=== PATIENT | female | born 1950 | race Caucasian/White ===

== ENCOUNTER → 2021-03-10 11:29 | Outpatient (CLI) | payer OTHER, SELFPAY ==
--- NOTE | 2021-03-10 11:30 | DI.MG.S_ITS ---
BILATERAL DIGITAL SCREENING MAMMOGRAM 3D/2D WITH CAD: 03/10/2021 CLINICAL: Routine screening. Comparison is made to exams dated: 01/08/2018 mammogram, 01/19/2015 mammogram, 08/15/2012 mammogram, 06/13/2011 mammogram, and 06/08/2010 mammogram - [facility]. There are scattered fibroglandular elements in both breasts. Current study was also evaluated with a Computer Aided Detection (CAD) system. No significant masses, calcifications, or other findings are seen in either breast. There has been no significant interval change. IMPRESSION: NEGATIVE There is no mammographic evidence of malignancy. A 1 year screening mammogram is recommended. This exam was interpreted at Station ID: [id number]. NOTE: For mammograms, a report in lay terms will be sent to the patient. Approximately 15% of breast malignancies will not be visualized mammographically. In the management of a palpable breast mass, a negative mammogram must not discourage biopsy of a clinically suspicious lesion. Electronically Signed By: Andrea [email or web address]:03/10/2021 14:19:06 letter sent: Normal Exam ACR BI-RADS Category 1: Negative [id number]
== END ==
PROVIDERS: Family Provider Family Medicine; PCP Family Medicine; Referring Provider Family Medicine; Visit Provider Family Medicine
DX: Z12.31 Encounter for screening mammogram for malignant neoplasm of breast (principal)
CPT/HCPCS: 77063; 77067

== ENCOUNTER → 2021-03-11 09:43 | Outpatient (CLI) | payer OTHER, SELFPAY ==
[2021-03-11 10:11] LABS: Add Manual Diff / Slide Review NO; Basophils Absolute Auto 100 /uL (0-100); Basophils Percent Auto 1.3 % (0-2); Eosinophils Absolute Auto 300 /uL (0-450); Eosinophils Percent Auto 6.2 % (2-4); Hematocrit 42.6 % (36-46); Hemoglobin 14.1 g/dL (12.0-16.0); Lymphocytes Absolute Auto 1800 /uL (1100-4500); Lymphocytes Percent Auto 38.6 % (25-40); Mean Corpuscular HGB Conc 33.2 % (30-36); Mean Corpuscular Hemoglobin 30.2 PG (26-34); Monocytes Absolute Auto 400 /uL (0-900); Monocytes Percent Auto 8.7 % (3-14); Neutrophils Absolute Auto 2100 /uL (1500-7000); Neutrophils Percent Auto 45.2 % (50-75); Platelet Count 204 X10^3/uL (150-400); Red Blood Cell Count 4.68 X10^6/uL (4.0-5.2); Red Cell Distribution Width 13.9 % (11.6-14.8); White Blood Cell Count 4.7 X10^3/uL (4.5-11.0)
[2021-03-11 10:29] LABS: Alanine Aminotransferase 23 IU/L (<35); Albumin 4.6 g/dL (3.5-5.0); Albumin Globulin Ratio 1.6 (1.0-2.8); Alkaline Phosphatase 96 U/L (38-126); Aspartate Aminotransferase 36 IU/L (14-36); BUN Creatinine Ratio 25.6 (6-22); Bilirubin Total 0.8 mg/dL (0.2-1.3); Blood Urea Nitrogen 20 mg/dL (7-17); Calcium 9.8 mg/dL (8.4-10.2); Carbon Dioxide 25 mmol/L (22-32); Chloride 109 mmol/L (98-107); Cholesterol 252 mg/dL (140-199); Estimated Glomerular Filt Rate > 60.0 mL/min (>60); Globulin 2.9 g/dL (1.7-4.1); Glucose 98 mg/dL (80-110); HDL Cholesterol 82 mg/dL (40-60); HEMOLYSIS < 15 (0-50); LDL Cholesterol Calculated 151 mg/dL (<100); Potassium 4.9 mmol/L (3.4-5.1); Sodium 141 mmol/L (137-145); Total Protein 7.5 g/dL (6.3-8.2); Triglycerides 95 mg/dL (35-150)
[2021-03-11 10:46] LABS: Vitamin D 25 Hydroxy (D3) 49.4 ng/mL (30.0-100.0)
[2021-03-11 11:43] LABS: Thyroid Stimulating Hormone 3.61 uIU/mL (0.47-4.68)
== END ==
PROVIDERS: Family Provider Family Medicine; PCP Family Medicine; Referring Provider Family Medicine; Visit Provider Family Medicine
DX: E78.2 Mixed hyperlipidemia (principal); E55.9 Vitamin D deficiency, unspecified
CPT/HCPCS: 36415; 80053; 80061; 82306; 84443; 85025

== ENCOUNTER 2022-11-05 10:07 | Emergency (ER) | payer OTHER, SELFPAY ==
[2022-11-05] VITALS (12 sets, daily range): BP systolic 123–157; BP diastolic 57–75; PULSE 61–88; RESP 16–39; TEMP 37.4; O2SAT 94–98; BMI 24.2
--- NOTE | 2022-11-05 10:27 | DI.CT.S_ITS ---
PROCEDURE: CT HEAD/BRAIN WO CON INDICATIONS: dizzy slurred speech resolved TECHNIQUE: Noncontrast 4.5 mm thick angled axial sections acquired from the foramen magnum to the vertex, with coronal and sagittal reformats. For radiation dose reduction, the following was used: automated exposure control, adjustment of mA and/or kV according to patient size. COMPARISON: None. FINDINGS: Image quality: Excellent. CSF spaces: Basal cisterns are patent. No extra-axial fluid collections. Ventricles are normal in size and shape. Brain: No midline shift. No intracranial masses or hemorrhage. Martinez-white matter interface is normal. Enlarged perivascular space noted adjacent to the left anterior commissure Skull and face: Calvarium and visualized facial bones are intact, without suspicious lesions. Incidental hyperostosis frontalis interna noted. Sinuses: Visualized sinuses and mastoids are clear. IMPRESSION: No acute intracranial findings Approved by: Rayo Galicia M.D. on 11/05/2022 at 10:15
--- NOTE | 2022-11-05 10:27 | DI.CT.S_ITS ---
PROCEDURE: CT ANGIO HEAD AND NECK INDICATIONS: dizzy slurred speech resolved TECHNIQUE: After the administration of intravenous contrast, 1 mm thick sections acquired from the aortic arch through the [place]. Post-contrast 4.5 mm thick sections then re-acquired from the foramen magnum to the vertex. For radiation dose reduction, the following was used: automated exposure control, adjustment of mA and/or kV according to patient size. COMPARISON: None. FINDINGS: Image quality: Excellent. HEAD CT ANGIOGRAPHY: Anterior circulation: Intracranial internal carotid arteries are normal in size and flow. The flow within the paired anterior cerebral arteries is normal and symmetric. The flow within the middle cerebral arteries is normal and symmetric. The anterior communicating artery is seen. No aneurysms are seen. Posterior circulation: Visualized portions of the vertebral arteries demonstrate normal caliber, and join to form a normal appearing basilar artery. 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 The P2 segment is supplied by a widely patent posterior communicating artery. Remainder of the distal vasculature unremarkable. No aneurysms are seen. NECK CT ANGIOGRAPHY: Carotid system: The great vessels demonstrate a conventional anatomy as they arise from the aortic arch. The origins of the common carotid arteries appear patent. The common carotid arteries demonstrate normal caliber and courses. The bifurcation regions are both widely patent. The internal carotid arteries demonstrate normal calibers and courses. Posterior circulation: The origins of the vertebral arteries both appear widely patent. The more superior extracranial portions of both vertebral arteries also demonstrate normal courses and calibers. They join to form a normal appearing basilar artery. Soft tissues: Visualized neck soft tissues demonstrate no suspicious abnormalities. Bones: No suspicious bony lesions. Visualized cervical spine appears normally aligned. Degenerative disc disease and arthropathy noted in the cervical IMPRESSION: Unremarkable CT angiogram of head and neck. No large vessel occlusion, aneurysm vascular malformation Any quantitative measurements of stenosis were performed using NASCET criteria. Approved by: Rayo Galicia M.D. on 11/05/2022 at 10:23
--- NOTE | 2022-11-05 10:28 | DI.RAD.S_ITS ---
PROCEDURE: XR CHEST 1V INDICATIONS: dizzy TECHNIQUE: One view of the chest was acquired. COMPARISON: [facility], , CHEST 2 VIEW, 02/26/2011, 10:33. FINDINGS: Surgical changes and devices: None. Lungs and pleura: Ill-defined increased opacity in right infrahilar region is seen. Left lung is clear. No pleural effusions or pneumothorax. Mediastinum: Mediastinal contours appear normal. Heart size is enlarged. Bones and chest wall: No suspicious bony lesions. Overlying soft tissues appear unremarkable. IMPRESSION: Finding is concerning for developing right infrahilar infiltrate. No pleural effusion or pneumothorax. Dictated by: Gold Padgett M.D. on 11/05/2022 at 11:24 Approved by: Gold Padgett M.D. on 11/05/2022 at 11:27
--- NOTE | 2022-11-05 10:35 | PC.NURSE ---
patient has not felt well for last couple days. Reports headache, fever, dry cough. Took ibuprofen this morning. Has dizziness at baseline intermittently. Patient states that she was excerting herself getting wood. found patient on the ground, generalized very weak unable to assist with getting up and noticed some slurred speech. Patient presents with normal speech at present and no focal neuro deficits
[2022-11-05 10:43] LABS: Add Manual Diff / Slide Review NO; Basophils Absolute Auto 0 /uL (0-100); Eosinophils Absolute Auto 0 /uL (0-450); Eosinophils Percent Auto 0.9 % (2-4); Hematocrit 37.4 % (36-46); Hemoglobin 12.6 g/dL (12.0-16.0); Lymphocytes Absolute Auto 800 /uL (1100-4500); Mean Corpuscular HGB Conc 33.8 % (30-36); Mean Corpuscular Hemoglobin 30.2 PG (26-34); Mean Corpuscular Volume 89.3 fL (80-100); Monocytes Absolute Auto 700 /uL (0-900); Monocytes Percent Auto 15.5 % (3-14); Neutrophils Absolute Auto 2700 /uL (1500-7000); Neutrophils Percent Auto 63.6 % (50-75); Platelet Count 161 X10^3/uL (150-400); Red Blood Cell Count 4.19 X10^6/uL (4.0-5.2); Red Cell Distribution Width 13.5 % (11.6-14.8); White Blood Cell Count 4.2 X10^3/uL (4.5-11.0)
[2022-11-05 10:48] LABS: Lactate (Lactic Acid) 0.8 mmol/L (0.7-2.1)
[2022-11-05 10:49] LABS: Alanine Aminotransferase 22 IU/L (<35); Albumin Globulin Ratio 1.3 (1.0-2.8); Alkaline Phosphatase 79 U/L (38-126); Aspartate Aminotransferase 31 IU/L (14-36); BUN Creatinine Ratio 19.4 (6-22); Bilirubin Total 0.4 mg/dL (0.2-1.3); Blood Urea Nitrogen 14 mg/dL (7-17); Calcium 8.3 mg/dL (8.4-10.2); Carbon Dioxide 24 mmol/L (22-32); Chloride 103 mmol/L (98-107); Creatine Kinase 101 U/L (30-135); Estimated Glomerular Filt Rate > 60 mL/min (>60); Globulin 3.2 g/dL (1.7-4.1); Glucose 93 mg/dL (80-110); HEMOLYSIS < 15 (0-50); Lipase 62 U/L (23-300); Potassium 3.5 mmol/L (3.4-5.1); Sodium 135 mmol/L (137-145); Total Protein 7.2 g/dL (6.3-8.2)
[2022-11-05 11:00] LABS: Troponin I < 0.012 ng/mL (0.01-0.034)
[2022-11-05] MEDS: SODIUM CHLORIDE 0.9% 1,000 ML 150 ML IV (11:03)
[2022-11-05 11:04] LABS: CKMB % Relative Index 0.6 % (1.5-5.0); Creatine Kinase MB 0.57 ng/mL (<2.37)
[2022-11-05 11:06] LABS: Procalcitonin 0.04 ng/mL (<0.5)
--- NOTE | 2022-11-05 11:21 | ED_ITS ---
HPI - Dizziness General Chief Complaint: Syncope Stated Complaint: collasped slurred speech forgeting words Time Seen by Provider: 11/05/22 10:23 Mode of arrival: Family Vehicle History of Present Illness HPI Narrative: Patient is a 72-year-old female history of hyperlipidemia hypothyroid presenting today with ground level fall weakness and slurring of speech. She apparently went outside to get a couple pieces of wood she would already gotten 3 pieces of wood she went to go get another 1 when she got dizzy and fell down. She was not down for very long her came to check on her and saw her just before 9:00 a.m. he said she was profoundly weak on both sides and had slurring of. Her symptoms lasted for less than 1 hour and have now completely resolved. She had fever yesterday but is not febrile today. She no longer has any weakness. She does have a history of vertigo but this felt significantly worse and different than previously. She denies any chest pain palpitations cough. Related Data Home Medications Medication Instructions Recorded Confirmed [Digestive Enzyme] #90 caps 02/26/18 03/08/22 [Thyroid Support Caps] #30 tabs 02/26/18 03/08/22 cholecalciferol (vitamin D3) 125 5,000 unit PO ##0 02/26/18 03/08/22 mcg (5,000 unit) capsule omega 2-rfe-jhz-fish oil 1,000 mg 1,000 mg PO ##0 02/26/18 03/08/22 (120 mg-180 mg) capsule (Fish Oil) vitamin B complex (B 1 tab PO QDAY ##0 02/26/18 03/08/22 Complex-Vitamin B12 tablet) Previous Rx's Medication Instructions Recorded atorvastatin 20 mg tablet (Lipitor) 20 mg PO BEDTIME #90 tabs 03/16/21 Allergies Allergy/AdvReac Type Severity Reaction Status Date / Time venom-honey bee Allergy Severe Fever Verified 11/05/22 10:31 [BEE VENOM (HONEY BEE)] Review of Systems Review of Systems Narrative: GENERAL: Denies chills,fever HEENT: Denies throat pain RESPIRATORY: Denies dyspnea, cough, wheezing CARDIOVASCULAR: Denies chest pain, palpitations GASTROINTESTINAL: Denies nausea, vomiting MUSCULOSKELETAL: Denies extremity pain, injury SKIN: No rash, no laceration, no pruritus NEUROLOGIC: See HPI 8 point review of systems is negative except for those stated above and HPI Patient History Medical History Abnormal liver function tests Colon cancer screening Impacted cerumen of both ears Neoplasm of uncertain behavior of skin Vitamin D deficiency Surgical History History of carpal tunnel repair History of tonsillectomy Status post colonoscopy Family History Brother Diabetes mellitus Heart disease Father Heart disease Hypertension High cholesterol Social History Smoking Status: Former smoker alcohol intake: current substance use type: does not use Smoking Status: Former smoker Exam Initial Vital Signs Initial Vital Signs: Vital Signs Temperature 99.3 F 11/05/22 10:07 Pulse Rate 69 11/05/22 10:07 Respiratory Rate 16 11/05/22 10:07 Blood Pressure 157/75 H 11/05/22 10:07 Pulse Oximetry 96 11/05/22 10:07 Oxygen Delivery Method 11/05/22 10:07 GENERAL: Alert pleasant 72-year-old female and in no acute distress. HEENT: Head atraumatic,EOMI, pupils reactive, face symmetric, moist mucous membranes CARDIOVASCULAR: Regular rate and rhythm without murmurs, rubs or gallops. RESPIRATORY: Breath sounds equal bilaterally, no wheezes rales or rhonchi. ABDOMEN: Soft, nontender. Normoactive bowel sounds all 4 quadrants. No guarding or rebound. EXTREMITIES: Normal range of motion, no clubbing or edema. Neurovascularly intact NEUROLOGICAL: Alert and oriented x4.Normal gait and speech. Cranial nerves II through XII grossly intact. Good jiwgcq-dw-bwqs, good qtva-gm-gtmn, strength equal bilaterally, no dysarthria or aphasia, sensation in tact to soft touch bilaterally, no visual changes, no facial droop SKIN: Warm, dry, no laceration, no petechiae, no rashes or lesions. Scores NIH Stroke Scale Level of Conciousness: Alert, keenly responsive Ask month/age: Answers both questions correctly. Open/close eyes, close hand: Performs both tasks correctly Best gaze horizontal: Normal Visual herring: No visual loss Facial palsy: Normal symetrical movement Left arm drift: No drift for full 10 sec Right arm drift: No drift for full 10 sec Left leg drift: No drift for full 5 sec Right leg drift: No drift for full 5 sec Limb ataxia: Absent Sensory on face/arms/legs: Normal, no sensory loss Best language: No aphasia, normal Dysarthria: Normal Extinction or inattention: No abnormality Total NIH Stroke scale score: 0 Course Orders Ordered: Discontinued Medications Sodium Chloride (Normal Saline 0.9%) 1,000 mls @ 150 mls/hr IV CONT RAFAELA Last Admin: 11/05/22 11:03 Dose: 150 mls/hr Documented By: [facility] Vital Signs Vital signs: Vital Signs - 8 hr 11/05/22 10:07 11/05/22 10:13 11/05/22 10:16 Temperature 99.3 F Pulse Rate 69 88 74 Respiratory Rate 16 28 H Blood Pressure 157/75 H Pulse Oximetry 96 98 Oxygen Delivery Method Room Air 11/05/22 10:16 11/05/22 10:30 11/05/22 10:31 Temperature Pulse Rate 68 Respiratory Rate 34 H Blood Pressure 157/75 H 130/61 Pulse Oximetry 97 Oxygen Delivery Method 11/05/22 10:31 11/05/22 10:55 11/05/22 10:55 Temperature Pulse Rate 67 79 Respiratory Rate 36 H 39 H Blood Pressure 124/57 L Pulse Oximetry 97 Oxygen Delivery Method 11/05/22 11:00 11/05/22 11:00 11/05/22 11:24 Temperature Pulse Rate 61 69 Respiratory Rate 27 H Blood Pressure 138/62 Pulse Oximetry 97 97 Oxygen Delivery Method 11/05/22 11:24 11/05/22 11:30 11/05/22 11:30 Temperature Pulse Rate 61 Respiratory Rate 19 Blood Pressure 123/59 L 140/67 Pulse Oximetry 97 Oxygen Delivery Method 11/05/22 11:59 11/05/22 11:59 11/05/22 12:00 Temperature Pulse Rate 80 74 Respiratory Rate 18 Blood Pressure 138/63 Pulse Oximetry 94 97 Oxygen Delivery Method MDM - Dizziness Lab Data Result diagrams: 11/05/22 10:28 11/05/22 10:25 Labs: Lab Results 11/05/22 11/05/22 11/05/22 Range/Units 10:25 10:25 10:25 WBC (4.5-11.0) X10^3/uL RBC (4.0-5.2) X10^6/uL Hgb (12.0-16.0) g/dL Hct (36-46) % MCV (80-100) fL MCH (26-34) PG MCHC (30-36) % RDW (11.6-14.8) % Plt Count (150-400) X10^3/uL Neut % (Auto) (50-75) % Lymph % (Auto) (25-40) % [place] % (Auto) (3-14) % Eos % (Auto) (2-4) % Baso % (Auto) (0-2) % Neut # (Auto) (5587-8578) /uL Lymph # (Auto) (8692-2856) /uL [place] # (Auto) (0-900) /uL Eos # (Auto) (0-450) /uL Baso # (Auto) (0-100) /uL PT (10.1-12.7) SECONDS INR (0.9-1.3) APTT (26-36) SECONDS Sodium 135 L (137-145) mmol/L Potassium 3.5 (3.4-5.1) mmol/L Chloride 103 (98-107) mmol/L Carbon Dioxide 24 (22-32) mmol/L BUN 14 (7-17) mg/dL Creatinine 0.72 (0.52-1.04) mg/dL Estimated GFR > 60 (>60) mL/min BUN/Creatinine Ratio 19.4 (6-22) Glucose 93 (80-110) mg/dL Lactate 0.8 (0.7-2.1) mmol/L Calcium 8.3 L (8.4-10.2) mg/dL Total Bilirubin 0.4 (0.2-1.3) mg/dL AST 31 (14-36) IU/L ALT 22 (<35) IU/L Alkaline Phosphatase 79 (38-126) U/L Total Creatine Kinase 101 (30-135) U/L CK-MB (CK-2) 0.57 (<2.37) ng/mL CK-MB (CK-2) Rel Index 0.6 L (1.5-5.0) % Troponin I < 0.012 (0.01-0.034) ng/mL Total Protein 7.2 (6.3-8.2) g/dL Albumin 4.0 (3.5-5.0) g/dL Globulin 3.2 (1.7-4.1) g/dL Albumin/Globulin Ratio 1.3 (1.0-2.8) Lipase 62 (23-300) U/L Procalcitonin 0.04 (<0.5) ng/mL Urine RBC (0-5/HPF) Urine WBC (0-5/HPF) Urine Bacteria (None) Ur Culture Indicated? SARS-CoV-2 (PCR) (Negative) Influenza A (RT-PCR) (NEGATIVE) Influenza B (RT-PCR) (NEGATIVE) RSV (PCR) (Negative) 11/05/22 11/05/22 11/05/22 Range/Units 10:27 10:28 10:45 WBC 4.2 L (4.5-11.0) X10^3/uL RBC 4.19 (4.0-5.2) X10^6/uL Hgb 12.6 (12.0-16.0) g/dL Hct 37.4 (36-46) % MCV 89.3 (80-100) fL MCH 30.2 (26-34) PG MCHC 33.8 (30-36) % RDW 13.5 (11.6-14.8) % Plt Count 161 (150-400) X10^3/uL Neut % (Auto) 63.6 (50-75) % Lymph % (Auto) 19.0 L (25-40) % [place] % (Auto) 15.5 H (3-14) % Eos % (Auto) 0.9 L (2-4) % Baso % (Auto) 1.0 (0-2) % Neut # (Auto) 2700 (1531-1550) /uL Lymph # (Auto) 800 L (0719-8715) /uL [place] # (Auto) 700 (0-900) /uL Eos # (Auto) 0 (0-450) /uL Baso # (Auto) 0 (0-100) /uL PT 12.6 (10.1-12.7) SECONDS INR 1.1 (0.9-1.3) APTT 31 (26-36) SECONDS Sodium (137-145) mmol/L Potassium (3.4-5.1) mmol/L Chloride (98-107) mmol/L Carbon Dioxide (22-32) mmol/L BUN (7-17) mg/dL Creatinine (0.52-1.04) mg/dL Estimated GFR (>60) mL/min BUN/Creatinine Ratio (6-22) Glucose (80-110) mg/dL Lactate (0.7-2.1) mmol/L Calcium (8.4-10.2) mg/dL Total Bilirubin (0.2-1.3) mg/dL AST (14-36) IU/L ALT (<35) IU/L Alkaline Phosphatase (38-126) U/L Total Creatine Kinase (30-135) U/L CK-MB (CK-2) (<2.37) ng/mL CK-MB (CK-2) Rel Index (1.5-5.0) % Troponin I (0.01-0.034) ng/mL Total Protein (6.3-8.2) g/dL Albumin (3.5-5.0) g/dL Globulin (1.7-4.1) g/dL Albumin/Globulin Ratio (1.0-2.8) Lipase (23-300) U/L Procalcitonin (<0.5) ng/mL Urine RBC (0-5/HPF) Urine WBC (0-5/HPF) Urine Bacteria (None) Ur Culture Indicated? SARS-CoV-2 (PCR) Negative (Negative) Influenza A (RT-PCR) Flu a positive H (NEGATIVE) Influenza B (RT-PCR) Flu b negative (NEGATIVE) RSV (PCR) Negative (Negative) 11/05/22 Range/Units 11:25 WBC (4.5-11.0) X10^3/uL RBC (4.0-5.2) X10^6/uL Hgb (12.0-16.0) g/dL Hct (36-46) % MCV (80-100) fL MCH (26-34) PG MCHC (30-36) % RDW (11.6-14.8) % Plt Count (150-400) X10^3/uL Neut % (Auto) (50-75) % Lymph % (Auto) (25-40) % [place] % (Auto) (3-14) % Eos % (Auto) (2-4) % Baso % (Auto) (0-2) % Neut # (Auto) (9450-0457) /uL Lymph # (Auto) (1100-2146) /uL [place] # (Auto) (0-900) /uL Eos # (Auto) (0-450) /uL Baso # (Auto) (0-100) /uL PT (10.1-12.7) SECONDS INR (0.9-1.3) APTT (26-36) SECONDS Sodium (137-145) mmol/L Potassium (3.4-5.1) mmol/L Chloride (98-107) mmol/L Carbon Dioxide (22-32) mmol/L BUN (7-17) mg/dL Creatinine (0.52-1.04) mg/dL Estimated GFR (>60) mL/min BUN/Creatinine Ratio (6-22) Glucose (80-110) mg/dL Lactate (0.7-2.1) mmol/L Calcium (8.4-10.2) mg/dL Total Bilirubin (0.2-1.3) mg/dL AST (14-36) IU/L ALT (<35) IU/L Alkaline Phosphatase (38-126) U/L Total Creatine Kinase (30-135) U/L CK-MB (CK-2) (<2.37) ng/mL CK-MB (CK-2) Rel Index (1.5-5.0) % Troponin I (0.01-0.034) ng/mL Total Protein (6.3-8.2) g/dL Albumin (3.5-5.0) g/dL Globulin (1.7-4.1) g/dL Albumin/Globulin Ratio (1.0-2.8) Lipase (23-300) U/L Procalcitonin (<0.5) ng/mL Urine RBC 5-10/hpf H (0-5/HPF) Urine WBC 0-1/hpf (0-5/HPF) Urine Bacteria Occasional (0-1) (None) Ur Culture Indicated? Specimen cultured SARS-CoV-2 (PCR) (Negative) Influenza A (RT-PCR) (NEGATIVE) Influenza B (RT-PCR) (NEGATIVE) RSV (PCR) (Negative) Urine Dip Bedside Urine Glucose Negative Bedside Urine Bilirubin - Negative Bedside Urine Ketone - Negative Urine Specific [place] 1.010 Bedside Urine Occult Blood ++ Bedside Urine pH 6.0 Bedside Urine Protein - Negative Bedside Urine Urobilinogen - Negative Bedside Urine Nitrite - Negative Bedside Urine Leukocytes +/- [address] scan - head: Radiologist's Impression: CT Scan Report Signed Patient: Ave Humphrey MR#: [id number] : 1950 Acct:[id number] Age/Sex: 72 / F Date of Service: 11/05/22 Loc: ED Accession Number: [id number] ?? Procedure: CT head/brain wo con Ordering Provider: Barbara Chaparro D.O. PROCEDURE:? CT HEAD/BRAIN WO CON ? INDICATIONS:? dizzy slurred speech resolved ? TECHNIQUE:? Noncontrast 4.5 mm thick angled axial sections acquired from the foramen magnum to the vertex, with coronal and sagittal reformats.? For radiation dose reduction, the following was used:? automated exposure control, adjustment of mA and/or kV according to patient size.? ? COMPARISON:? None. ? FINDINGS:? Image quality:? Excellent.? ? CSF spaces:? Basal cisterns are patent.? No extra-axial fluid collections.? Ventricles are normal in size and shape.? ? Brain:? No midline shift.? No intracranial masses or hemorrhage.? Martinez-white matter interface is normal.? Enlarged perivascular space noted adjacent to the left anterior commissure ? Skull and face:? Calvarium and visualized facial bones are intact, without suspicious lesions.? Incidental hyperostosis frontalis interna noted. ? Sinuses:? Visualized sinuses and mastoids are clear.? ? IMPRESSION:? No acute intracranial findings ? ? ? Approved by: Rayo Galicia M.D. on 11/05/2022 at 10:15? CTA - brain/neck: Radiologist's Impression: CT Scan Report Signed Patient: Ave Humphrey MR#: [id number] : 1950 Acct:[id number] Age/Sex: 72 / F Date of Service: 11/05/22 Loc: ED Accession Number: [id number] ?? Procedure: CT angio head and neck Ordering Provider: Barbara Chaparro D.O. PROCEDURE:? CT ANGIO HEAD AND NECK ? INDICATIONS:? dizzy slurred speech resolved ? TECHNIQUE:? After the administration of intravenous contrast, 1 mm thick sections acquired from the aortic arch through the [place].? Post-contrast 4.5 mm thick sections then re-acquired from the foramen magnum to the vertex. For radiation dose reduction, the following was used:? automated exposure control, adjustment of mA and/or kV according to patient size.? ? COMPARISON:? None. ? FINDINGS:? Image quality:? Excellent.? ? HEAD CT ANGIOGRAPHY:? Anterior circulation:? Intracranial internal carotid arteries are normal in size and flow.? The flow within the paired anterior cerebral arteries is normal and symmetric.? The flow within the middle cerebral arteries is normal and symmetric.? The anterior communicating artery is seen.? No aneurysms are seen.? ? Posterior circulation:? Visualized portions of the vertebral arteries demonstrate normal caliber, and join to form a normal appearing basilar artery.? Basilar artery terminates in the superior cerebellar arteries Hypoplasia/aplasia of the bilateral P1 ONLINE MERCHANT noted. The P2 segment is supplied by a widely patent posterior communicating artery. Remainder of the distal vasculature unremarkable.? No aneurysms are seen.? ? NECK CT ANGIOGRAPHY:? Carotid system:? The great vessels demonstrate a conventional anatomy as they arise from the aortic arch.? The origins of the common carotid arteries appear patent.? The common carotid arteries demonstrate normal caliber and courses.? The bifurcation regions are both widely patent.? The internal carotid arteries demonstrate normal calibers and courses.? ? Posterior circulation:? The origins of the vertebral arteries both appear widely patent.? The more superior extracranial portions of both vertebral arteries also demonstrate normal courses and calibers.? They join to form a normal appearing basilar artery.? ? Soft tissues:? Visualized neck soft tissues demonstrate no suspicious abnorm alities.? ? Bones:? No suspicious bony lesions.? Visualized cervical spine appears normally aligned.? Degenerative disc disease and arthropathy noted in the cervical ? ? IMPRESSION:? ? Unremarkable CT angiogram of head and neck.? No large vessel occlusion, aneurysm vascular malformation ? Any quantitative measurements of stenosis were performed using NASCET criteria.? Approved by: Rayo Galicia M.D. on 11/05/2022 at 10:23? Chest x-ray: Radiologist's Impression: XRay Report Signed Patient: Ave Humphrey MR#: [id number] : 1950 Acct:[id number] Age/Sex: 72 / F Date of Service: 11/05/22 Loc: ED Accession Number: [id number] ?? Procedure: XR chest 1V Ordering Provider: Barbara Chaparro D.O. PROCEDURE:? XR CHEST 1V ? INDICATIONS:? dizzy ? TECHNIQUE:? One view of the chest was acquired.? ? COMPARISON:? [facility], , CHEST 2 VIEW, 02/26/2011, 10:33. ? FINDINGS:? ? Surgical changes and devices:? None.? ? Lungs and pleura:? Ill-defined increased opacity in right infrahilar region is seen.? Left lung is clear.? No pleural effusions or pneumothorax.? ? Mediastinum:? Mediastinal contours appear normal.? Heart size is enlarged. ? Bones and chest wall:? No suspicious bony lesions.? Overlying soft tissues appear unremarkable.? ? IMPRESSION:? Finding is concerning for developing right infrahilar infiltrate.? No pleural effusion or pneumothorax. ? ? Dictated by: Gold Padgett M.D. on 11/05/2022 at 11:24 ? ? ECG Data Interpretation: Sinus rhythm rate 70 [place] interval 170 QRS [address] changes no T-wave inversions similar to previous EKG in 2016 MDM Narrative Medical decision making narrative: Patient has a history of vertigo sounds like vertigo is definitely worse with some slurring of speech. All symptoms lasted less than an hour symptoms completely resolved. Differential does include vertigo as well as TIA and CVA. However patient also had fever yesterday and generally not feeling well. Blood work is overall reassuring CTs and imaging do not show any abnormality. She has positive for influenza a which would explain her fever possibly worsening dizziness. Patient is at her baseline now feels better and ready and able to go At this time I do not feel symptoms are related to CVA. Still possible TIA however symptoms did not last very long slurring of speech was less than 5 minutes. She is awake alert inappropriate. Discussed with both patient and poss ible to have TIA and influenza however at this time we feel comfortable going home. With strict return precautions I discussed all findings with the patient and , Education has been performed regarding treatment plan, diagnosis, warning signs and symptoms and all concerns have been addressed. Verbally agree with and understood all of the above. Discharge Plan Departure Patient Disposition: Home Clinical Impression: Influenza A Instructions: Transient Ischemic Attack, DI for Influenza -- Adult Activity Restrictions/Additional Instructions: *You have been diagnosed with influenza a *What to do: At this time workup today in the emergency department is overall reassuring. It is possible that he had a mini stroke however I think more likely symptoms are related to the flu. No need for antibiotics. Please rest and hydrate. *Continue to take medications as directed Tylenol 650 mg every 4-6 hours if needed for ovpi-wj-zvxsppja pain or fever Motrin 600 mg every 6 hours if needed for xreb-jk-wpjvocoe pain or fever *Follow up with your primary care provider in 2-3 days or call [phone] *Return to ER if you should have increasing confusion slurring of speech facial droop weakness not drinking fluids fever not controlled worsening headache or any new, worsening or concerning symptoms Prescriptions: No Action [Thyroid Support Caps] Qty: 30 omega 8-abf-kjz-fish oil [Fish Oil] 1,000 MG capsule 1,000 mg PO Qty: 0 [Digestive Enzyme] Qty: 90 cholecalciferol (vitamin D3) 5,000 UNIT capsule 5,000 unit PO Qty: 0 vitamin B complex [B Complex-Vitamin B12] 1 EACH tablet 1 tab PO QDAY Qty: 0 atorvastatin [Lipitor] 20 mg tablet 20 mg PO BEDTIME Qty: 90 0RF Referrals: Osmany Crandall MD [Primary Care Provider] - Visit Report Forms: Patient Portal/API
[2022-11-05 11:48] LABS: Bacteria Urine Occasional (0-1); Culture Indicated Urine Specimen Cultured; RBC Urine 5-10/HPF (0-5/HPF); WBC Urine 0-1/HPF (0-5/HPF)
[2022-11-05 12:36] LABS: Influenza A - CEPHEID Flu A POSITIVE (NEGATIVE); Influenza B - CEPHEID Flu B NEGATIVE (NEGATIVE); Respiratory Syncytial Virus Negative (Negative)
[2022-11-05 12:41] LABS: COVID-19 CEPHEID 4-PLEX PCR Negative (Negative)
[2022-11-05 20:23] LABS: INR 1.1 (0.9-1.3); Prothrombin Time 12.6 SECONDS (10.1-12.7)
[2022-11-05 20:26] LABS: PTT Partial Thromboplastin Tim 31 SECONDS (26-36)
== END 2022-11-05 14:16 | disposition home or self-care (01) ==
PROVIDERS: Emergency Provider Emergency Medicine; Family Provider Family Medicine; PCP Family Medicine
DX: J11.1 Influenza due to unidentified influenza virus with other respiratory manifestations (principal); G45.9 Transient cerebral ischemic attack, unspecified; R50.9 Fever, unspecified; W18.30XA Fall on same level, unspecified, initial encounter; Z20.822 Contact with and (suspected) exposure to COVID-19
CPT/HCPCS: 0241U; 36415; 70450; 70496; 70498; 71045; 80053; 81003; 81015; 82550; 82553; 83605; 83690; 84145; 84484; 85025; 85610; 85730; 87086; 93005; 93010; 99284; Q9967

== ENCOUNTER → 2023-01-17 13:19 | Outpatient (CLI) | payer OTHER, SELFPAY ==
--- NOTE | 2023-01-17 | DI.MG.S_ITS ---
BILATERAL DIGITAL SCREENING MAMMOGRAM 3D/2D WITH CAD: 01/17/2023 CLINICAL: Routine screening. Comparison is made to exams dated: 03/10/2021 mammogram, 01/08/2018 mammogram, and 01/19/2015 mammogram - [facility]. There are scattered areas of fibroglandular density in both breasts (category b / 25%-50% glandular tissue). Current study was also evaluated with a Computer Aided Detection (CAD) system. No significant masses, calcifications, or other findings are seen in either breast. There has been no significant interval change. IMPRESSION: NEGATIVE There is no mammographic evidence of malignancy. A 1 year screening mammogram is recommended. Based on the Tyrer Cuzick model (a risk assessment model) the patient's lifetime risk is 9.1% and her 10 year risk is 7.8%. According to the ACR, ACS, and NCCN guidelines, an annual breast MRI exam along with mammogram is recommended if the patient's lifetime risk is 20% or greater. This exam was interpreted at Station ID: [id number]. NOTE: For mammograms, a report in lay terms will be sent to the patient. Approximately 15% of breast malignancies will not be visualized mammographically. In the management of a palpable breast mass, a negative mammogram must not discourage biopsy of a clinically suspicious lesion. Electronically Signed By: Jose Herzog M.D., jr/markos:01/17/2023 13:56:20 letter sent: Normal Exam ACR BI-RADS Category 1: Negative 3341F
== END ==
PROVIDERS: Family Provider Family Medicine; PCP Family Medicine; Referring Provider Family Medicine; Visit Provider Family Medicine
DX: Z12.31 Encounter for screening mammogram for malignant neoplasm of breast (principal)
CPT/HCPCS: 77063; 77067

== ENCOUNTER → 2024-01-23 09:55 | Outpatient (CLI) | payer OTHER, SELFPAY ==
--- NOTE | 2024-01-23 09:56 | DI.RAD.S_ITS ---
PROCEDURE: XR SHOULDER RT MIN 2V INDICATIONS: Right shoulder pain x 2 mos, worse with extension TECHNIQUE: 3 views of the shoulder were acquired. COMPARISON: None. FINDINGS: Bones: No fractures or dislocations. Normal glenohumeral alignment. Acromioclavicular and coracoclavicular intervals are maintained No suspicious bony lesions. Visualized ribs appear intact. Soft tissues: No suspicious soft tissue calcifications. . Visualized right lung is clear. IMPRESSION: No acute bony abnormality. Dictated by: Christian Arriaza M.D. on 01/23/2024 at 12:26 Approved by: Christian Arriaza M.D. on 01/23/2024 at 12:28
== END ==
LOC: RAD 09:56
PROVIDERS: Family Provider Family Medicine; PCP Family Medicine; Referring Provider Physician Assistant; Visit Provider Physician Assistant
DX: M25.511 Pain in right shoulder (principal)
CPT/HCPCS: 73030

== ENCOUNTER 2024-04-29 10:30 | Outpatient (RCR) | payer OTHER, SELFPAY ==
--- NOTE | 2024-02-24 16:00 | PT.OIE ---
Current Diagnoses Pain in right shoulder (02/24/24) Muscle weakness (generalized) (02/24/24) Bicipital tendinitis, right shoulder (02/24/24) Unsteadiness on feet (02/24/24) Repeated falls (02/24/24) History of falling (02/24/24) Past Medical History (Last Reviewed 11/05/22 @ 11:23 by Barbara Chaparro DO) Abnormal liver function tests Colon cancer screening Impacted cerumen of both ears Neoplasm of uncertain behavior of skin Vitamin D deficiency Past Surgical History (Last Reviewed 11/05/22 @ 11:23 by Barbara Chaparro DO) History of carpal tunnel repair History of tonsillectomy Status post colonoscopy Visit Care Team Role Provider Type Osmany Crandall MD Primary Care Provider Physician Specialty: [facility] Practice Address: [address] [place] [address], [id number] Email: [email or web address] John Ledesma MD Family Provider Non-Staff Specialty: [facility] Address: [address] [place] [address], [facility] Email: [email or web address] Sheridan Angulo PA-C Attending Provider Advanced Back Shoe Operator Referring Provider Specialty: Medical Wound Care Address: [address] [place] [address], [address] Email: [email or web address] Physical Therapy Initial Evaluation PT-OP-A Visit Information Start: 02/24/24 17:38 Freq: Status: Active Protocol: Document 02/24/24 15:15 DCW (Rec: 02/24/24 17:49 DCW [id number]) Out-Patient Physical Therapy Visit Information Visit Information Visit Type Initial Evaluation Visit Start Time 15:15 Visit Stop Time 16:00 Visit Number 1 Number of CHART SNATCHER Visits 0 Evaluation Information Evaluation Date 02/24/24 PT-OP-B Current Condition Start: 02/24/24 17:38 Freq: Status: Active Protocol: Document 02/24/24 15:15 DCW (Rec: 02/24/24 17:49 DCW [id number]) Current Condition History of Current Condition Onset Date Multi-month history Current Complaints Repeated falls, right shoulder pain History of Current Condition Pt is a 73 year old female presenting with complaints of repeated falls and right shoulder pain. Pt has had four falls recently, two caused by tripping or tangling her feet , and two occurred when up walking/carrying things when ill/feverish and her legs just gave out under her. Additionally has been experiencing right anterior shoulder pain for the last ~ four week. Pt is not sure if the shoulder pain was caused by one of the falls. Shoulder bothers her the most performing actions like getting into/out of her kayak, reaching across her body for a seat belt, or pulling up her pants. Also disturbs her sleep when she sleeps on her right side. Pt notes clicking/ popping in anterior shoulder. As far as her balance goes, pt participates multiple times a week in a ilana class, and notices any time that she has to stand on one foot, she is very unstable/falls. Treatment Goals Patient/Caregiver Goals Decrease falls, improve shoulder pain PT-OP-C Subjective Start: 02/24/24 17:38 Freq: Status: Active Protocol: Document 02/24/24 15:15 DCW (Rec: 02/24/24 17:49 DCW [id number]) OP-PT Subjective Patient Comments Patient Comments I'm really unstable in my Ilana class, and I seem to be the only one who struggles with it. Patient Questionnaires Quick Dash- Work and Sports Modules Quick Dash W&S Score 37.5% Other Questionnaire Name and Score Falls Efficacy Scale - International ( PT-OP-D Balance Start: 02/24/24 17:38 Freq: Status: Active Protocol: Document 02/24/24 15:15 DCW (Rec: 02/24/24 17:54 DCW [id number]) Balance Tests Hawkins Balance Test Hawkins Balance Test Score 49/56 Hawkins Balance Assessment Evaluation Sitting to Standing Ability Independent w/out Hands Unsupported Stance Safely- 2 minutes Sitting Unsupported, Feet on Floor Safely- 2 minutes Standing to Sitting Ability Safely, Minimal Hand Use Transfer Ability Safely, Minimal Hand Use Unsupported Stance- Eyes Closed Safely, 10 seconds Unsupported Stance- Eyes Open Independent, 1 minute Reaching Forward Standing Safely, 5 inches Pick- Up Object From Floor Independent/Safe Look Behind Shoulder - Standing Shifts Weight Well Turning 360 Degrees Supervision/Verbal Cues Unsupported Stance, Alternating Feet on (I)- 8 Steps in 20 secs Stair Unsupported Tandem Stance Holds Tandem- 30 seconds Unilateral Leg Stance Lifts Leg/Holds > 3 secs Total Score Hawkins Total Score (out of 56 points) 49 PT-OP-E Functional Tests Start: 02/24/24 17:38 Freq: Status: Active Protocol: Document 02/24/24 15:15 DCW (Rec: 02/24/24 17:54 DCW [id number]) Functional Tests Dynamic Gait Index (DGI) Score PT-OP-F Manual Assessment Start: 02/24/24 17:38 Freq: Status: Active Protocol: Document 02/24/24 15:15 DCW (Rec: 02/24/24 17:54 DCW [id number]) Manual Assessments Soft Tissue Assessment Soft Tissue Mobility Assessment Tenderness to palpation 3/4: Wincing and withdraw R LH biceps tendon PT-OP-G Mobility & Gait Start: 02/24/24 17:54 Freq: Status: Active Protocol: Document 02/24/24 15:15 DCW (Rec: 02/25/24 09:40 DCW [id number]) OP Gait Assessment Gait Gait Assistance Required: Independent Assistive Devices Assistive Device None Comments Gait Comments Pt exhibits decreased push-off during gait bilaterally, although right appears to be more limited than left. Struggles with ankle strategies, especially with vertical head turns during gait. PT-OP-K Range of Motion Start: 02/24/24 17:38 Freq: Status: Active Protocol: Document 02/24/24 15:15 DCW (Rec: 02/25/24 09:40 DCW [id number]) Shoulder Goniometric Range of Motion Shoulder Right Active Shoulder ROM WFL No Testing Position Sitting Flexion 100 Abduction 150 External Rotation at 0 degrees Abduction 40 PT-OP-L Special Tests Start: 02/24/24 17:38 Freq: Status: Active Protocol: Document 02/24/24 15:15 DCW (Rec: 02/25/24 09:40 DCW [id number]) Special Tests Shoulder Special Tests Roerhalle's Biceps Test Results Positive R Speed's Biceps Test Results Positive R Lift-Off Rotator Cuff Test Results Negative Story Maximo Impingement Test Results Negative Grind Labrum Test Results Negative Drop Arm Rotator Cuff Test Results Negative Belly Press Test Results Negative Apprehension Test Test Results Negative Anterior Draw Test Results Negative PT-OP-M Strength Start: 02/24/24 17:38 Freq: Status: Active Protocol: Document 02/24/24 15:15 DCW (Rec: 02/25/24 09:40 DCW [id number]) Ankle/Foot Strength Ankle and Foot Manual Muscle Testing Right Dorsiflexion (L4) 4- Good- Plantarflexion (S1) 3+ Fair+ Comments Struggles with single leg heel raise, fatigues after 3-4 repetitions, uses UE for assistance. Left Dorsiflexion (L4) 4- Good- Plantarflexion (S1) 3+ Fair+ Comments Struggles with single leg heel raise, fatigues after 3-4 repetitions, uses UE for assistance. PT-OP-Q Treatments Start: 02/24/24 17:38 Freq: Status: Active Protocol: Document 02/24/24 15:15 DCW (Rec: 02/24/24 17:49 DCW [id number]) Therapeutic Exercises Standing Exercises Heel Raises Standing Exercise Name Unilateral heel raises Neuro Re-Education Treatment Balance Activities Tandem Stance Details Tandem SLS Details SLS PT-OP-T Assessment and Plan Start: 02/24/24 17:38 Freq: Status: Active Protocol: Document 02/24/24 15:15 DCW (Rec: 02/25/24 14:59 DCW [id number]) Physical Therapy Assessment Rehab Potential Rehabilitation Potential Good Evaluation Complexity Number of Personal Factors/Comorbidities 3 or More Number of Body Systems Impaired 3 Clinical Presentation at Evaluation Unstable Impairments Impairments Activity Tolerance,Balance, Functional Activities, Functional Mobility,Gait,Pain, ROM,Soft Tissue Mobility, Strength,Tone Goals Four Impairment Right shoulder flexion limited to 100? due to pain Correction Goal (LTG) Pt to improve right shoulder flexion to at least 140? without anterior shoulder pain in order to improve ability to perform motions associated with her kayaking hobby. LTG Duration 04/25/24 Three Impairment Bilateral ankle PF MMT tests at 3+/5 Correction Goal (LTG) Pt to increase ankle strength to at least 4/5 in order to improve push-off during gait LTG Duration 04/25/24 Two Impairment Multiple recent falls Labor Relations Worker Goal (LTG) Pt to exhibit decreased falls risk bu improving DGI score by at least 3 points to LTG Duration 04/25/24 One Impairment Pt does not have an appropriate home exercise program Short Term Goal (STG) Pt to be independent and compliant with an appropriate HEP STG Duration 03/25/24 Assessment Summary Assessment Pt presents with sings and symptoms consisted with potential right bicipital tendonitis with potential injury to the transverse ligament across the bicipital groove. Injury may have occurred during one of pt's recent falls, which appear to be associated with bilateral ankle weakness. Pt limited with plantar flexion and demonstrates very quick fatigue, resulting in decreased ankle strategies during LOB and poor push-off during gait, both resulting in an increased falls risk. Pt should benefit from skilled therapy focusing on shoulder strengthening, decreasing inflammation, improving gait, increasing ankle strength/ mobility, and improving balance in order to decrease increased falls risk. Physical Therapy Plan Frequency and Duration Frequency of Treatment 2x/Week Plan of Care Start Date 02/24/24 Plan of Care End Date 04/25/24 Therapeutic Interventions Therapeutic Interventions Balance Training,Gait Training ,Home Exercise Program,Joint Mobilizations,Manual Therapy, Neuromuscular Re-education, Patient/Caregiver Education, Self-Care/Home Management,Soft Tissue Mobilization,Taping, Therapeutic Activities, Therapeutic Exercises Modalities Cold Pack/Ice Massage,Electric Stimulation,Hot Packs, Ultrasound Next Visit Focus/Plan Next Note Type Treatment Note Next Visit Plan Shoulder strengthening/ stabilization, ankle strengthening, gait/balance training
--- NOTE | 2024-02-24 16:00 | PT.OPPOC ---
Physical, Occupational & Speech Therapy At [facility] Current Diagnoses Pain in right shoulder (02/24/24) Muscle weakness (generalized) (02/24/24) Bicipital tendinitis, right shoulder (02/24/24) Unsteadiness on feet (02/24/24) Repeated falls (02/24/24) History of falling (02/24/24) Visit Care Team Role Provider Type Osmany Crandall MD Primary Care Provider Physician Specialty: Family Practice Address: [address] [place] [address] Email: [email or web address] John Ledesma MD Family Provider Non-Staff Specialty: [facility] Address: [address] [place] [address] Email: [email or web address] Sheridan Angulo PA-C Attending Provider Advanced Bunk Assembler Referring Provider Specialty: Medical Wound Care Address: [address] [place] [address], [address] Email: [email or web address] Plan Of Care PT-OP-T Assessment and Plan Start: 02/24/24 17:38 Freq: Status: Active Protocol: Document 02/24/24 15:15 DCW (Rec: 02/25/24 14:59 DCW [id number]) Physical Therapy Assessment Rehab Potential Rehabilitation Potential Good Evaluation Complexity Number of Personal Factors/Comorbidities 3 or More Number of Body Systems Impaired 3 Clinical Presentation at Evaluation Unstable Impairments Impairments Activity Tolerance,Balance, Functional Activities, Functional Mobility,Gait,Pain, ROM,Soft Tissue Mobility, Strength,Tone Goals Four Impairment Right shoulder flexion limited to 100? due to pain Fdc Goal (LTG) Pt to improve right shoulder flexion to at least 140? without anterior shoulder pain in order to improve ability to perform motions associated with her kayaking hobby. LTG Duration 04/25/24 Three Impairment Bilateral ankle PF MMT tests at 3+/5 Die Repair Goal (LTG) Pt to increase ankle strength to at least 4/5 in order to improve push-off during gait LTG Duration 04/25/24 Two Impairment Multiple recent falls Fdc Goal (LTG) Pt to exhibit decreased falls risk bu improving DGI score by at least 3 points to LTG Duration 04/25/24 One Impairment Pt does not have an appropriate home exercise program Short Term Goal (STG) Pt to be independent and compliant with an appropriate HEP STG Duration 03/25/24 Assessment Summary Assessment Pt presents with sings and symptoms consisted with potential right bicipital tendonitis with potential injury to the transverse ligament across the bicipital groove. Injury may have occurred during one of pt's recent falls, which appear to be associated with bilateral ankle weakness. Pt limited with plantar flexion and demonstrates very quick fatigue, resulting in decreased ankle strategies during LOB and poor push-off during gait, both resulting in an increased falls risk. Pt should benefit from skilled therapy focusing on shoulder strengthening, decreasing inflammation, improving gait, increasing ankle strength/ mobility, and improving balance in order to decrease increased falls risk. Physical Therapy Plan Frequency and Duration Frequency of Treatment 2x/Week Plan of Care Start Date 02/24/24 Plan of Care End Date 04/25/24 Therapeutic Interventions Therapeutic Interventions Balance Training,Gait Training ,Home Exercise Program,Joint Mobilizations,Manual Therapy, Neuromuscular Re-education, Patient/Caregiver Education, Self-Care/Home Management,Soft Tissue Mobilization,Taping, Therapeutic Activities, Therapeutic Exercises Modalities Cold Pack/Ice Massage,Electric Stimulation,Hot Packs, Ultrasound Next Visit Focus/Plan Next Note Type Treatment Note Next Visit Plan Shoulder strengthening/ stabilization, ankle strengthening, gait/balance training Plan of Care Dates Plan of Care Start Date 02/24/24 Plan of Care End Date 04/25/24 Electronically Signed by: Gato Webb, PT 02/25/24 1500 If you are in agreement with this Plan of Care, please return a signed and dated copy. I have reviewed this Plan of Care and certify that the skilled therapy services above are required to meet the patient?s needs. Physician Signature Date Printed Name and Credentials Clinical Instructor Signature Printed Name and Credentials
--- NOTE | 2024-02-26 14:30 | PT.OTN ---
Current Diagnoses Pain in right shoulder (02/26/24) Muscle weakness (generalized) (02/26/24) Bicipital tendinitis, right shoulder (02/26/24) Unsteadiness on feet (02/26/24) Repeated falls (02/26/24) History of falling (02/26/24) Physical Therapy Treatment Note PT-OP-A Visit Information Start: 02/24/24 17:38 Freq: Status: Active Protocol: Document 02/26/24 13:45 DCW (Rec: 02/26/24 14:30 DCW [id number]) Out-Patient Physical Therapy Visit Information Visit Information Visit Type Treatment Note Visit Start Time 13:45 Visit Stop Time 14:30 Visit Number 2 Number of DIGITAL PERFORMANCE ANALYST Visits 0 Evaluation Information Evaluation Date 02/24/24 PT-OP-B Current Condition Start: 02/24/24 17:38 Freq: Status: Active Protocol: Document 02/24/24 15:15 DCW (Rec: 02/24/24 17:49 DCW [id number]) Current Condition History of Current Condition Onset Date Multi-month history Current Complaints Repeated falls, right shoulder pain History of Current Condition Pt is a 73 year old female presenting with complaints of repeated falls and right shoulder pain. Pt has had four falls recently, two caused by tripping or tangling her feet , and two occurred when up walking/carrying things when ill/feverish and her legs just gave out under her. Additionally has been experiencing right anterior shoulder pain for the last ~ four week. Pt is not sure if the shoulder pain was caused by one of the falls. Shoulder bothers her the most performing actions like getting into/out of her kayak, reaching across her body for a seat belt, or pulling up her pants. Also disturbs her sleep when she sleeps on her right side. Pt notes clicking/ popping in anterior shoulder. As far as her balance goes, pt participates multiple times a week in a mellisa class, and notices any time that she has to stand on one foot, she is very unstable/falls. Treatment Goals Patient/Caregiver Goals Decrease falls, improve shoulder pain PT-OP-C Subjective Start: 02/24/24 17:38 Freq: Status: Active Protocol: Document 02/26/24 13:45 DCW (Rec: 02/26/24 14:30 DCW [id number]) OP-PT Subjective Patient Comments Patient Comments My shoulder is a little sore after my Mellisa calss earlier today. PT-OP-D Balance Start: 02/24/24 17:38 Freq: Status: Active Protocol: Document 02/24/24 15:15 DCW (Rec: 02/24/24 17:54 DCW [id number]) Balance Tests Hawkins Balance Test Hawkins Balance Test Score 49/56 Hawkins Balance Assessment Evaluation Sitting to Standing Ability Independent w/out Hands Unsupported Stance Safely- 2 minutes Sitting Unsupported, Feet on Floor Safely- 2 minutes Standing to Sitting Ability Safely, Minimal Hand Use Transfer Ability Safely, Minimal Hand Use Unsupported Stance- Eyes Closed Safely, 10 seconds Unsupported Stance- Eyes Open Independent, 1 minute Reaching Forward Standing Safely, 5 inches Pick- Up Object From Floor Independent/Safe Look Behind Shoulder - Standing Shifts Weight Well Turning 360 Degrees Supervision/Verbal Cues Unsupported Stance, Alternating Feet on (I)- 8 Steps in 20 secs Stair Unsupported Tandem Stance Holds Tandem- 30 seconds Unilateral Leg Stance Lifts Leg/Holds > 3 secs Total Score Hawkins Total Score (out of 56 points) 49 PT-OP-E Functional Tests Start: 02/24/24 17:38 Freq: Status: Active Protocol: Document 02/24/24 15:15 DCW (Rec: 02/24/24 17:54 DCW [id number]) Functional Tests Dynamic Gait Index (DGI) Score PT-OP-F Manual Assessment Start: 02/24/24 17:38 Freq: Status: Active Protocol: Document 02/24/24 15:15 DCW (Rec: 02/24/24 17:54 DCW [id number]) Manual Assessments Soft Tissue Assessment Soft Tissue Mobility Assessment Tenderness to palpation 3/4: Wincing and withdraw R LH biceps tendon PT-OP-G Mobility & Gait Start: 02/24/24 17:54 Freq: Status: Active Protocol: Document 02/24/24 15:15 DCW (Rec: 02/25/24 09:40 DCW [id number]) OP Gait Assessment Gait Gait Assistance Required: Independent Assistive Devices Assistive Device None Comments Gait Comments Pt exhibits decreased push-off during gait bilaterally, although right appears to be more limited than left. Struggles with ankle strategies, especially with vertical head turns during gait. PT-OP-K Range of Motion Start: 02/24/24 17:38 Freq: Status: Active Protocol: Document 02/24/24 15:15 DCW (Rec: 02/25/24 09:40 DCW [id number]) Shoulder Goniometric Range of Motion Shoulder Right Active Shoulder ROM WFL No Testing Position Sitting Flexion 100 Abduction 150 External Rotation at 0 degrees Abduction 40 PT-OP-L Special Tests Start: 02/24/24 17:38 Freq: Status: Active Protocol: Document 02/24/24 15:15 DCW (Rec: 02/25/24 09:40 DCW [id number]) Special Tests Shoulder Special Tests Yergason's Biceps Test Results Positive R Speed's Biceps Test Results Positive R Lift-Off Rotator Cuff Test Results Negative Story Maximo Impingement Test Results Negative Grind Labrum Test Results Negative Drop Arm Rotator Cuff Test Results Negative Belly Press Test Results Negative Apprehension Test Test Results Negative Anterior Draw Test Results Negative PT-OP-M Strength Start: 02/24/24 17:38 Freq: Status: Active Protocol: Document 02/24/24 15:15 DCW (Rec: 02/25/24 09:40 DCW [id number]) Ankle/Foot Strength Ankle and Foot Manual Muscle Testing Right Dorsiflexion (L4) 4- Good- Plantarflexion (S1) 3+ Fair+ Comments Struggles with single leg heel raise, fatigues after 3-4 repetitions, uses UE for assistance. Left Dorsiflexion (L4) 4- Good- Plantarflexion (S1) 3+ Fair+ Comments Struggles with single leg heel raise, fatigues after 3-4 repetitions, uses UE for assistance. PT-OP-Q Treatments Start: 02/24/24 17:38 Freq: Status: Active Protocol: Document 02/26/24 13:45 DCW (Rec: 02/26/24 14:30 DCW [id number]) Cardio Equipment Upper Body Ergometer (UBE) Duration (Minutes) 5 RPM 60 Seat Position 12 Height 3 Gym Equipment Shuttle Balance Red Details WBOS, Staggered, Lateral weight shift Therapeutic Exercises Sitting Exercises Pulleys Sitting Exercise Name Pulleys - Flexion Side bilateral Standing Exercises Extension Standing Exercise Name Shoulder Extension Side bilateral Resistance Green Neuro Re-Education Treatment Balance Activities SLS Details SLS Surface AirEx PT-OP-T Assessment and Plan Start: 02/24/24 17:38 Freq: Status: Active Protocol: Document 02/26/24 13:45 DCW (Rec: 02/26/24 14:30 DCW [id number]) Physical Therapy Assessment Impairments Impairments Activity Tolerance,Balance, Functional Activities, Functional Mobility,Gait,Pain, ROM,Soft Tissue Mobility, Strength,Tone Goals Four Impairment Right shoulder flexion limited to 100? due to pain Assisted Goal (LTG) Pt to improve right shoulder flexion to at least 140? without anterior shoulder pain in order to improve ability to perform motions associated with her kayaking hobby. LTG Duration 04/25/24 Three Impairment Bilateral ankle PF MMT tests at 3+/5 Nutritional Services Cook Goal (LTG) Pt to increase ankle strength to at least 4/5 in order to improve push-off during gait LTG Duration 04/25/24 Two Impairment Multiple recent falls Assisted Goal (LTG) Pt to exhibit decreased falls risk bu improving DGI score by at least 3 points to LTG Duration 04/25/24 One Impairment Pt does not have an appropriate home exercise program Short Term Goal (STG) Pt to be independent and compliant with an appropriate HEP STG Duration 03/25/24 Assessment Summary Assessment Good response to shoulder strengthening/ROM exercises today. Pt had clear difficulty with ankle strengthening and stabilization exercises. Continue to focus on balance and ankle strength in order to decrease falls risk. Physical Therapy Plan Frequency and Duration Frequency of Treatment 2x/Week Plan of Care Start Date 02/24/24 Plan of Care End Date 04/25/24 Therapeutic Interventions Therapeutic Interventions Balance Training,Gait Training ,Home Exercise Program,Joint Mobilizations,Manual Therapy, Neuromuscular Re-education, Patient/Caregiver Education, Self-Care/Home Management,Soft Tissue Mobilization,Taping, Therapeutic Activities, Therapeutic Exercises Modalities Cold Pack/Ice Massage,Electric Stimulation,Hot Packs, Ultrasound Next Visit Focus/Plan Next Note Type Treatment Note Next Visit Plan Shoulder strengthening/ stabilization, ankle strengthening, gait/balance training
--- NOTE | 2024-03-02 14:30 | PT.OTN ---
Current Diagnoses Pain in right shoulder (03/02/24) Muscle weakness (generalized) (03/02/24) Bicipital tendinitis, right shoulder (03/02/24) Unsteadiness on feet (03/02/24) Repeated falls (03/02/24) History of falling (03/02/24) Physical Therapy Treatment Note PT-OP-A Visit Information Start: 02/24/24 17:38 Freq: Status: Active Protocol: Document 03/02/24 13:47 SP (Rec: 03/02/24 14:36 SP [id number]) Out-Patient Physical Therapy Visit Information Visit Information Visit Type Treatment Note Visit Start Time 13:47 Visit Stop Time 14:30 Visit Number 3 Number of PULP PILER Visits 1 Evaluation Information Evaluation Date 02/24/24 PT-OP-B Current Condition Start: 02/24/24 17:38 Freq: Status: Active Protocol: Document 02/24/24 15:15 DCW (Rec: 02/24/24 17:49 DCW [id number]) Current Condition History of Current Condition Onset Date Multi-month history Current Complaints Repeated falls, right shoulder pain History of Current Condition Pt is a 73 year old female presenting with complaints of repeated falls and right shoulder pain. Pt has had four falls recently, two caused by tripping or tangling her feet , and two occurred when up walking/carrying things when ill/feverish and her legs just gave out under her. Additionally has been experiencing right anterior shoulder pain for the last ~ four week. Pt is not sure if the shoulder pain was caused by one of the falls. Shoulder bothers her the most performing actions like getting into/out of her kayak, reaching across her body for a seat belt, or pulling up her pants. Also disturbs her sleep when she sleeps on her right side. Pt notes clicking/ popping in anterior shoulder. As far as her balance goes, pt participates multiple times a week in a [employer] class, and notices any time that she has to stand on one foot, she is very unstable/falls. Treatment Goals Patient/Caregiver Goals Decrease falls, improve shoulder pain PT-OP-C Subjective Start: 02/24/24 17:38 Freq: Status: Active Protocol: Document 03/02/24 13:47 SP (Rec: 03/02/24 14:36 SP [id number]) OP-PT Subjective Patient Comments Patient Comments Pt reports felt good soreness around distal RTC and anterior after last tx. Stated has pain sleeping on R. PT-OP-D Balance Start: 02/24/24 17:38 Freq: Status: Active Protocol: Document 02/24/24 15:15 DCW (Rec: 02/24/24 17:54 DCW [id number]) Balance Tests Hawkins Balance Test Hawkins Balance Test Score 49/56 Hawkins Balance Assessment Evaluation Sitting to Standing Ability Independent w/out Hands Unsupported Stance Safely- 2 minutes Sitting Unsupported, Feet on Floor Safely- 2 minutes Standing to Sitting Ability Safely, Minimal Hand Use Transfer Ability Safely, Minimal Hand Use Unsupported Stance- Eyes Closed Safely, 10 seconds Unsupported Stance- Eyes Open Independent, 1 minute Reaching Forward Standing Safely, 5 inches Pick- Up Object From Floor Independent/Safe Look Behind Shoulder - Standing Shifts Weight Well Turning 360 Degrees Supervision/Verbal Cues Unsupported Stance, Alternating Feet on (I)- 8 Steps in 20 secs Stair Unsupported Tandem Stance Holds Tandem- 30 seconds Unilateral Leg Stance Lifts Leg/Holds > 3 secs Total Score Hawkins Total Score (out of 56 points) 49 PT-OP-E Functional Tests Start: 02/24/24 17:38 Freq: Status: Active Protocol: Document 02/24/24 15:15 DCW (Rec: 02/24/24 17:54 DCW [id number]) Functional Tests Dynamic Gait Index (DGI) Score 24 PT-OP-F Manual Assessment Start: 02/24/24 17:38 Freq: Status: Active Protocol: Document 02/24/24 15:15 DCW (Rec: 02/24/24 17:54 DCW [id number]) Manual Assessments Soft Tissue Assessment Soft Tissue Mobility Assessment Tenderness to palpation 3/4: Wincing and withdraw R LH biceps tendon PT-OP-G Mobility & Gait Start: 02/24/24 17:54 Freq: Status: Active Protocol: Document 02/24/24 15:15 DCW (Rec: 02/25/24 09:40 DCW [id number]) OP Gait Assessment Gait Gait Assistance Required: Independent Assistive Devices Assistive Device None Comments Gait Comments Pt exhibits decreased push-off during gait bilaterally, although right appears to be more limited than left. Struggles with ankle strategies, especially with vertical head turns during gait. PT-OP-K Range of Motion Start: 02/24/24 17:38 Freq: Status: Active Protocol: Document 02/24/24 15:15 DCW (Rec: 02/25/24 09:40 DCW [id number]) Shoulder Goniometric Range of Motion Shoulder Right Active Shoulder ROM WFL No Testing Position Sitting Flexion 100 Abduction 150 External Rotation at 0 degrees Abduction 40 PT-OP-L Special Tests Start: 02/24/24 17:38 Freq: Status: Active Protocol: Document 02/24/24 15:15 DCW (Rec: 02/25/24 09:40 DCW [id number]) Special Tests Shoulder Special Tests Yergason's Biceps Test Results Positive R Speed's Biceps Test Results Positive R Lift-Off Rotator Cuff Test Results Negative Story Maximo Impingement Test Results Negative Grind Labrum Test Results Negative Drop Arm Rotator Cuff Test Results Negative Belly Press Test Results Negative Apprehension Test Test Results Negative Anterior Draw Test Results Negative PT-OP-M Strength Start: 02/24/24 17:38 Freq: Status: Active Protocol: Document 02/24/24 15:15 DCW (Rec: 02/25/24 09:40 DCW [id number]) Ankle/Foot Strength Ankle and Foot Manual Muscle Testing Right Dorsiflexion (L4) 4- Good- Plantarflexion (S1) 3+ Fair+ Comments Struggles with single leg heel raise, fatigues after 3-4 repetitions, uses UE for assistance. Left Dorsiflexion (L4) 4- Good- Plantarflexion (S1) 3+ Fair+ Comments Struggles with single leg heel raise, fatigues after 3-4 repetitions, uses UE for assistance. PT-OP-Q Treatments Start: 02/24/24 17:38 Freq: Status: Active Protocol: Document 03/02/24 13:47 SP (Rec: 03/02/24 14:36 SP [id number]) Cardio Equipment Upper Body Ergometer (UBE) Duration (Minutes) 6 RPM 60 Seat Position 10 Height 3 Other f/b 1 min alternating Therapeutic Exercises Standing Exercises shoulder rolls Standing Exercise Name added to HEP Side bilateral Resistance 5# DB in BUE Reps/Minutes x10 Comments up, back, down shld IR, ER Standing Exercise Name added to HEP Side right Resistance TB #3 green Reps/Minutes x12 each Comments cued set up, elbow at side, control ecc, head up neutral Extension Standing Exercise Name Shoulder Extension- reviewed HEP Side bilateral Resistance Green Reps/Minutes x15 Comments cued rhomboid fac during con/ eccentric return ext Heel Raises Standing Exercise Name Unilateral heel raises- forgot give HO for HEP Side bilateral Equipment Used light contact rail Reps/Minutes x10 Comments cued tall, Neuro Re-Education Treatment Balance Activities tandem walking Comments hallway tile line, carpet seam Tandem Stance Details Tandem Comments floor: R and L LE fwd 30 sec each, more stable LLE fwd * good tall/core and scap fac carryover from ed. SLS Details SLS Surface floor Comments floor RLE 2, 8 sec, LLE 2, 11 sec Black air ex R 10sec , L 10 sec Cued tall, rhomboid and core fac increased SLS time. PT-OP-T Assessment and Plan Start: 02/24/24 17:38 Freq: Status: Active Protocol: Document 03/02/24 13:47 SP (Rec: 03/02/24 14:36 SP [id number]) Physical Therapy Assessment Goals Four Impairment Right shoulder flexion limited to 100? due to pain Skilled Nursing Goal (LTG) Pt to improve right shoulder flexion to at least 140? without anterior shoulder pain in order to improve ability to perform motions associated with her kayaking hobby. LTG Duration 04/25/24 Three Impairment Bilateral ankle PF MMT tests at 3+/5 Superintendent Pressure Goal (LTG) Pt to increase ankle strength to at least 4/5 in order to improve push-off during gait LTG Duration 04/25/24 Two Impairment Multiple recent falls Skilled Nursing Goal (LTG) Pt to exhibit decreased falls risk bu improving DGI score by at least 3 points to LTG Duration 04/25/24 One Impairment Pt does not have an appropriate home exercise program Short Term Goal (STG) Pt to be independent and compliant with an appropriate HEP STG Duration 03/25/24 Assessment Summary Assessment Pt good tolerance to resisted ther ex today, improved scapular stabilization during shoulder strengthening exercises with minimal cuing for posture, rhomboid and core fac eccentric return and carryover into balance activities, self corrections noted, reduction to occasional cues. Pt requested HOs for assist carryover home reminders. Future progression resisted chakraborty hold with elbow flexion to improve pulling up pants painfree. Physical Therapy Plan Frequency and Duration Frequency of Treatment 2x/Week Plan of Care Start Date 02/24/24 Plan of Care End Date 04/25/24 Therapeutic Interventions Therapeutic Interventions Balance Training,Gait Training ,Home Exercise Program,Joint Mobilizations,Manual Therapy, Neuromuscular Re-education, Patient/Caregiver Education, Self-Care/Home Management,Soft Tissue Mobilization,Taping, Therapeutic Activities, Therapeutic Exercises Modalities Cold Pack/Ice Massage,Electric Stimulation,Hot Packs, Ultrasound Next Visit Focus/Plan Next Note Type Treatment Note Next Visit Plan Assess resisted humeral IR/ER/ ext/shoulder rolls. POC: Shoulder strengthening/ stabilization, ankle strengthening, gait/balance training
--- NOTE | 2024-03-04 14:30 | PT.OTN ---
Current Diagnoses Pain in right shoulder (03/04/24) Muscle weakness (generalized) (03/04/24) Bicipital tendinitis, right shoulder (03/04/24) Unsteadiness on feet (03/04/24) Repeated falls (03/04/24) History of falling (03/04/24) Physical Therapy Treatment Note PT-OP-A Visit Information Start: 02/24/24 17:38 Freq: Status: Active Protocol: Document 03/04/24 13:47 SP (Rec: 03/04/24 14:34 SP [id number]) Out-Patient Physical Therapy Visit Information Visit Information Visit Type Treatment Note Visit Start Time 13:47 Visit Stop Time 14:30 Visit Number 4 Number of [employer] SOLUTION ARCHITECT Visits 2 Evaluation Information Evaluation Date 02/24/24 PT-OP-B Current Condition Start: 02/24/24 17:38 Freq: Status: Active Protocol: Document 02/24/24 15:15 DCW (Rec: 02/24/24 17:49 DCW [id number]) Current Condition History of Current Condition Onset Date Multi-month history Current Complaints Repeated falls, right shoulder pain History of Current Condition Pt is a 73 year old female presenting with complaints of repeated falls and right shoulder pain. Pt has had four falls recently, two caused by tripping or tangling her feet , and two occurred when up walking/carrying things when ill/feverish and her legs just gave out under her. Additionally has been experiencing right anterior shoulder pain for the last ~ four week. Pt is not sure if the shoulder pain was caused by one of the falls. Shoulder bothers her the most performing actions like getting into/out of her kayak, reaching across her body for a seat belt, or pulling up her pants. Also disturbs her sleep when she sleeps on her right side. Pt notes clicking/ popping in anterior shoulder. As far as her balance goes, pt participates multiple times a week in a [employer] class, and notices any time that she has to stand on one foot, she is very unstable/falls. Treatment Goals Patient/Caregiver Goals Decrease falls, improve shoulder pain PT-OP-C Subjective Start: 02/24/24 17:38 Freq: Status: Active Protocol: Document 03/04/24 13:47 SP (Rec: 03/04/24 14:34 SP [id number]) OP-PT Subjective Patient Comments Patient Comments Pt reports was sore after last tx. Today she felt more stable during Mellisa with mindful of corrections learned for posture to allow success on her feet. PT-OP-D Balance Start: 02/24/24 17:38 Freq: Status: Active Protocol: Document 02/24/24 15:15 DCW (Rec: 02/24/24 17:54 DCW [id number]) Balance Tests Hawkins Balance Test Hawkins Balance Test Score 49/56 Hawkins Balance Assessment Evaluation Sitting to Standing Ability Independent w/out Hands Unsupported Stance Safely- 2 minutes Sitting Unsupported, Feet on Floor Safely- 2 minutes Standing to Sitting Ability Safely, Minimal Hand Use Transfer Ability Safely, Minimal Hand Use Unsupported Stance- Eyes Closed Safely, 10 seconds Unsupported Stance- Eyes Open Independent, 1 minute Reaching Forward Standing Safely, 5 inches Pick- Up Object From Floor Independent/Safe Look Behind Shoulder - Standing Shifts Weight Well Turning 360 Degrees Supervision/Verbal Cues Unsupported Stance, Alternating Feet on (I)- 8 Steps in 20 secs Stair Unsupported Tandem Stance Holds Tandem- 30 seconds Unilateral Leg Stance Lifts Leg/Holds > 3 secs Total Score Hawkins Total Score (out of 56 points) 49 PT-OP-E Functional Tests Start: 02/24/24 17:38 Freq: Status: Active Protocol: Document 02/24/24 15:15 DCW (Rec: 02/24/24 17:54 DCW [id number]) Functional Tests Dynamic Gait Index (DGI) Score 24 PT-OP-F Manual Assessment Start: 02/24/24 17:38 Freq: Status: Active Protocol: Document 02/24/24 15:15 DCW (Rec: 02/24/24 17:54 DCW [id number]) Manual Assessments Soft Tissue Assessment Soft Tissue Mobility Assessment Tenderness to palpation 3/4: Wincing and withdraw R LH biceps tendon PT-OP-G Mobility & Gait Start: 02/24/24 17:54 Freq: Status: Active Protocol: Document 02/24/24 15:15 DCW (Rec: 02/25/24 09:40 DCW [id number]) OP Gait Assessment Gait Gait Assistance Required: Independent Assistive Devices Assistive Device None Comments Gait Comments Pt exhibits decreased push-off during gait bilaterally, although right appears to be more limited than left. Struggles with ankle strategies, especially with vertical head turns during gait. PT-OP-K Range of Motion Start: 02/24/24 17:38 Freq: Status: Active Protocol: Document 02/24/24 15:15 DCW (Rec: 02/25/24 09:40 DCW [id number]) Shoulder Goniometric Range of Motion Shoulder Right Active Shoulder ROM WFL No Testing Position Sitting Flexion 100 Abduction 150 External Rotation at 0 degrees Abduction 40 PT-OP-L Special Tests Start: 02/24/24 17:38 Freq: Status: Active Protocol: Document 02/24/24 15:15 DCW (Rec: 02/25/24 09:40 DCW [id number]) Special Tests Shoulder Special Tests Yergason's Biceps Test Results Positive R Speed's Biceps Test Results Positive R Lift-Off Rotator Cuff Test Results Negative Story Maximo Impingement Test Results Negative Grind Labrum Test Results Negative Drop Arm Rotator Cuff Test Results Negative Belly Press Test Results Negative Apprehension Test Test Results Negative Anterior Draw Test Results Negative PT-OP-M Strength Start: 02/24/24 17:38 Freq: Status: Active Protocol: Document 02/24/24 15:15 DCW (Rec: 02/25/24 09:40 DCW [id number]) Ankle/Foot Strength Ankle and Foot Manual Muscle Testing Right Dorsiflexion (L4) 4- Good- Plantarflexion (S1) 3+ Fair+ Comments Struggles with single leg heel raise, fatigues after 3-4 repetitions, uses UE for assistance. Left Dorsiflexion (L4) 4- Good- Plantarflexion (S1) 3+ Fair+ Comments Struggles with single leg heel raise, fatigues after 3-4 repetitions, uses UE for assistance. PT-OP-Q Treatments Start: 02/24/24 17:38 Freq: Status: Active Protocol: Document 03/04/24 13:47 SP (Rec: 03/04/24 14:34 SP [id number]) Cardio Equipment Recumbent Elliptical (Biodex) Duration (Minutes) 4 Resistance 5 (UBE unavailable) Seat Position see7 Other BUEs, BLEs: RPMs 55-60 Therapeutic Exercises Standing Exercises shoulder rolls Standing Exercise Name reviewed HEP Side bilateral Resistance 5# DB in BUE Reps/Minutes x10 Comments up, back, down- pn free, CS retraction neutral shld IR, ER Standing Exercise Name reviewed HEP Side right Resistance TB #3 green nonlatex> L1 light blue latex home Equipment Used towel roll under arm Reps/Minutes 2x12 each Comments cued set up: body pos, elbow at side, control ecc, CS retraction neutral Extension Standing Exercise Name Shoulder Extension- reviewed HEP Side bilateral Resistance Green> L2 aqua latex Equipment Used *time spent on successful band no R bicep irritation Reps/Minutes x15 Comments cued rhomboid fac during con/ eccentric return ext-CS retraction neutral Heel Raises Standing Exercise Name Unilateral heel raises- forgot give HO for HEP Side bilateral Equipment Used light contact rail Reps/Minutes x10 Comments cued tall wt shift into forefoot then lift/lower Neuro Re-Education Treatment Balance Activities tandem walking Details hallway tile line, carpet seam Comments cues for rhomboid and core fac wt shft over advanced LE, improved stability with distance. Self-Care/Home Management Treatment Education Patient Education Body Mechanics,Joint Protection,Pain Management, Posture Other Education sleeping: ed use pillow between B LEs for hip and spinal support, flat pillow under lateral upper ribcage to unweight bottom arm and behind back to less rolling backward with good response less pressure on bottom shld alot more comfortable ability to sleep on both sides. PT-OP-T Assessment and Plan Start: 02/24/24 17:38 Freq: Status: Active Protocol: Document 03/04/24 13:47 SP (Rec: 03/04/24 14:34 SP [id number]) Physical Therapy Assessment Goals Four Impairment Right shoulder flexion limited to 100? due to pain Senior Care Goal (LTG) Pt to improve right shoulder flexion to at least 140? without anterior shoulder pain in order to improve ability to perform motions associated with her kayaking hobby. LTG Duration 04/25/24 Three Impairment Bilateral ankle PF MMT tests at 3+/5 Senior Care Goal (LTG) Pt to increase ankle strength to at least 4/5 in order to improve push-off during gait LTG Duration 04/25/24 Two Impairment Multiple recent falls Senior Care Goal (LTG) Pt to exhibit decreased falls risk bu improving DGI score by at least 3 points to LTG Duration 04/25/24 One Impairment Pt does not have an appropriate home exercise program Short Term Goal (STG) Pt to be independent and compliant with an appropriate HEP STG Duration 03/25/24 Assessment Summary Assessment Pt responded well to strengthening HEP review, needed reduce resistance during IR/ ER and ext for support maintain positioning with cues for scapular set: retraction/depression neutral during con/eccentric return. Pt improving postural awareness for carryover tandem walking today and incorporating into her day. Physical Therapy Plan Frequency and Duration Frequency of Treatment 2x/Week Plan of Care Start Date 02/24/24 Plan of Care End Date 04/25/24 Therapeutic Interventions Therapeutic Interventions Balance Training,Gait Training ,Home Exercise Program,Joint Mobilizations,Manual Therapy, Neuromuscular Re-education, Patient/Caregiver Education, Self-Care/Home Management,Soft Tissue Mobilization,Taping, Therapeutic Activities, Therapeutic Exercises Modalities Cold Pack/Ice Massage,Electric Stimulation,Hot Packs, Ultrasound Next Visit Focus/Plan Next Note Type Treatment Note Next Visit Plan Assess tolerated reduction resisted humeral IR/ER/ext/ shoulder rolls. POC: Shoulder strengthening/ stabilization, ankle strengthening, gait/balance training
--- NOTE | 2024-03-12 16:21 | PT.OTN ---
Current Diagnoses Pain in right shoulder (03/12/24) Muscle weakness (generalized) (03/12/24) Bicipital tendinitis, right shoulder (03/12/24) Unsteadiness on feet (03/12/24) Repeated falls (03/12/24) History of falling (03/12/24) Physical Therapy Treatment Note PT-OP-A Visit Information Start: 02/24/24 17:38 Freq: Status: Active Protocol: Document 03/12/24 13:54 SW (Rec: 03/12/24 14:32 SW [id number]) Out-Patient Physical Therapy Visit Information Visit Information Visit Type Treatment Note Visit Start Time 13:45 Visit Stop Time 14:25 Visit Number 5 Number of SUPERVISOR RECEIVING AND PROCESSING Visits 3 PT-OP-B Current Condition Start: 02/24/24 17:38 Freq: Status: Active Protocol: Document 02/24/24 15:15 DCW (Rec: 02/24/24 17:49 DCW [id number]) Current Condition History of Current Condition Onset Date Multi-month history Current Complaints Repeated falls, right shoulder pain History of Current Condition Pt is a 73 year old female presenting with complaints of repeated falls and right shoulder pain. Pt has had four falls recently, two caused by tripping or tangling her feet , and two occurred when up walking/carrying things when ill/feverish and her legs just gave out under her. Additionally has been experiencing right anterior shoulder pain for the last ~ four week. Pt is not sure if the shoulder pain was caused by one of the falls. Shoulder bothers her the most performing actions like getting into/out of her kayak, reaching across her body for a seat belt, or pulling up her pants. Also disturbs her sleep when she sleeps on her right side. Pt notes clicking/ popping in anterior shoulder. As far as her balance goes, pt participates multiple times a week in a ilana class, and notices any time that she has to stand on one foot, she is very unstable/falls. Treatment Goals Patient/Caregiver Goals Decrease falls, improve shoulder pain PT-OP-C Subjective Start: 02/24/24 17:38 Freq: Status: Active Protocol: Document 03/12/24 13:54 SW (Rec: 03/12/24 14:32 SW [id number]) OP-PT Subjective Patient Comments Patient Comments Pt reports doing well, still feel the aching, but does notice improvement. PT-OP-D Balance Start: 02/24/24 17:38 Freq: Status: Active Protocol: Document 02/24/24 15:15 DCW (Rec: 02/24/24 17:54 DCW [id number]) Balance Tests Hawkins Balance Test Hawkins Balance Test Score 49/56 Hawkins Balance Assessment Evaluation Sitting to Standing Ability Independent w/out Hands Unsupported Stance Safely- 2 minutes Sitting Unsupported, Feet on Floor Safely- 2 minutes Standing to Sitting Ability Safely, Minimal Hand Use Transfer Ability Safely, Minimal Hand Use Unsupported Stance- Eyes Closed Safely, 10 seconds Unsupported Stance- Eyes Open Independent, 1 minute Reaching Forward Standing Safely, 5 inches Pick- Up Object From Floor Independent/Safe Look Behind Shoulder - Standing Shifts Weight Well Turning 360 Degrees Supervision/Verbal Cues Unsupported Stance, Alternating Feet on (I)- 8 Steps in 20 secs Stair Unsupported Tandem Stance Holds Tandem- 30 seconds Unilateral Leg Stance Lifts Leg/Holds > 3 secs Total Score Hawkins Total Score (out of 56 points) 49 PT-OP-E Functional Tests Start: 02/24/24 17:38 Freq: Status: Active Protocol: Document 02/24/24 15:15 DCW (Rec: 02/24/24 17:54 DCW [id number]) Functional Tests Dynamic Gait Index (DGI) Score 24 PT-OP-F Manual Assessment Start: 02/24/24 17:38 Freq: Status: Active Protocol: Document 02/24/24 15:15 DCW (Rec: 02/24/24 17:54 DCW [id number]) Manual Assessments Soft Tissue Assessment Soft Tissue Mobility Assessment Tenderness to palpation 3/4: Wincing and withdraw R LH biceps tendon PT-OP-G Mobility & Gait Start: 02/24/24 17:54 Freq: Status: Active Protocol: Document 02/24/24 15:15 DCW (Rec: 02/25/24 09:40 DCW [id number]) OP Gait Assessment Gait Gait Assistance Required: Independent Assistive Devices Assistive Device None Comments Gait Comments Pt exhibits decreased push-off during gait bilaterally, although right appears to be more limited than left. Struggles with ankle strategies, especially with vertical head turns during gait. PT-OP-K Range of Motion Start: 02/24/24 17:38 Freq: Status: Active Protocol: Document 02/24/24 15:15 DCW (Rec: 02/25/24 09:40 DCW [id number]) Shoulder Goniometric Range of Motion Shoulder Right Active Shoulder ROM WFL No Testing Position Sitting Flexion 100 Abduction 150 External Rotation at 0 degrees Abduction 40 PT-OP-L Special Tests Start: 02/24/24 17:38 Freq: Status: Active Protocol: Document 02/24/24 15:15 DCW (Rec: 02/25/24 09:40 DCW [id number]) Special Tests Shoulder Special Tests Yergason's Biceps Test Results Positive R Speed's Biceps Test Results Positive R Lift-Off Rotator Cuff Test Results Negative Story Maximo Impingement Test Results Negative Grind Labrum Test Results Negative Drop Arm Rotator Cuff Test Results Negative Belly Press Test Results Negative Apprehension Test Test Results Negative Anterior Draw Test Results Negative PT-OP-M Strength Start: 02/24/24 17:38 Freq: Status: Active Protocol: Document 02/24/24 15:15 DCW (Rec: 02/25/24 09:40 DCW [id number]) Ankle/Foot Strength Ankle and Foot Manual Muscle Testing Right Dorsiflexion (L4) 4- Good- Plantarflexion (S1) 3+ Fair+ Comments Struggles with single leg heel raise, fatigues after 3-4 repetitions, uses UE for assistance. Left Dorsiflexion (L4) 4- Good- Plantarflexion (S1) 3+ Fair+ Comments Struggles with single leg heel raise, fatigues after 3-4 repetitions, uses UE for assistance. PT-OP-Q Treatments Start: 02/24/24 17:38 Freq: Status: Active Protocol: Document 03/12/24 13:54 SW (Rec: 03/12/24 14:32 SW [id number]) Therapeutic Exercises Sitting Exercises Ankle IV/EV Sitting Exercise Name Ankle IV/EV Side left Resistance level 1 Comments extended time for pt education Ankle DF Sitting Exercise Name DF Side left Resistance level level Comments extended time for pt education , Ankle PF Sitting Exercise Name PF Side left Resistance Level 1 Comments exteded time for pt education, cues for movement at ankle not hip Standing Exercises shld IR, ER Standing Exercise Name reviewed HEP setup Side right Resistance L1 light blue latex home Equipment Used towel roll under arm Reps/Minutes 2x12 each Comments cued set up: body pos, elbow at side, control ecc, CS retraction neutral Heel Raises Standing Exercise Name Unilateral heel raises, BLE with small orange ball between ankles Side bilateral Equipment Used light contact rail Reps/Minutes x10 Comments cued tall wt shift into forefoot then lift/lower PT-OP-T Assessment and Plan Start: 02/24/24 17:38 Freq: Status: Active Protocol: Document 03/12/24 13:54 SW (Rec: 03/12/24 14:32 [id number]) Physical Therapy Assessment Goals Four Impairment Right shoulder flexion limited to 100? due to pain Handkerchief Folder Goal (LTG) Pt to improve right shoulder flexion to at least 140? without anterior shoulder pain in order to improve ability to perform motions associated with her kayaking hobby. LTG Duration 04/25/24 Three Impairment Bilateral ankle PF MMT tests at 3+/5 Handkerchief Folder Goal (LTG) Pt to increase ankle strength to at least 4/5 in order to improve push-off during gait LTG Duration 04/25/24 Two Impairment Multiple recent falls Retirement Goal (LTG) Pt to exhibit decreased falls risk bu improving DGI score by at least 3 points to LTG Duration 04/25/24 One Impairment Pt does not have an appropriate home exercise program Short Term Goal (STG) Pt to be independent and compliant with an appropriate HEP STG Duration 03/25/24 Assessment Summary Assessment Pt reports HEP going well, though would like to review for correct setup and execution at home. Extended time on exercises this session for correct execution and carryover at home for pt compliance with HEP, instructed pt to bring in HEP exercises next session if still having difficulty at home with carryover. Physical Therapy Plan Frequency and Duration Frequency of Treatment 2x/Week Plan of Care Start Date 02/24/24 Plan of Care End Date 04/25/24 Therapeutic Interventions Therapeutic Interventions Balance Training,Gait Training ,Home Exercise Program,Joint Mobilizations,Manual Therapy, Neuromuscular Re-education, Patient/Caregiver Education, Self-Care/Home Management,Soft Tissue Mobilization,Taping, Therapeutic Activities, Therapeutic Exercises Modalities Cold Pack/Ice Massage,Electric Stimulation,Hot Packs, Ultrasound Next Visit Focus/Plan Next Note Type Treatment Note Next Visit Plan Assess tolerated reduction resisted humeral IR/ER/ext/ shoulder rolls. POC: Shoulder strengthening/ stabilization, ankle strengthening, gait/balance training
--- NOTE | 2024-03-17 16:07 | PT.OTN ---
Current Diagnoses Pain in right shoulder (03/17/24) Muscle weakness (generalized) (03/17/24) Bicipital tendinitis, right shoulder (03/17/24) Unsteadiness on feet (03/17/24) Repeated falls (03/17/24) History of falling (03/17/24) Physical Therapy Treatment Note PT-OP-A Visit Information Start: 02/24/24 17:38 Freq: Status: Active Protocol: Document 03/17/24 10:28 SW (Rec: 03/17/24 11:19 SW [id number]) Out-Patient Physical Therapy Visit Information Visit Information Visit Type Treatment Note Visit Start Time 10:30 Visit Stop Time 11:25 Visit Number 6 Number of OBSTETRICAL NURSE Visits 4 PT-OP-B Current Condition Start: 02/24/24 17:38 Freq: Status: Active Protocol: Document 02/24/24 15:15 DCW (Rec: 02/24/24 17:49 DCW [id number]) Current Condition History of Current Condition Onset Date Multi-month history Current Complaints Repeated falls, right shoulder pain History of Current Condition Pt is a 73 year old female presenting with complaints of repeated falls and right shoulder pain. Pt has had four falls recently, two caused by tripping or tangling her feet , and two occurred when up walking/carrying things when ill/feverish and her legs just gave out under her. Additionally has been experiencing right anterior shoulder pain for the last ~ four week. Pt is not sure if the shoulder pain was caused by one of the falls. Shoulder bothers her the most performing actions like getting into/out of her kayak, reaching across her body for a seat belt, or pulling up her pants. Also disturbs her sleep when she sleeps on her right side. Pt notes clicking/ popping in anterior shoulder. As far as her balance goes, pt participates multiple times a week in a ilana class, and notices any time that she has to stand on one foot, she is very unstable/falls. Treatment Goals Patient/Caregiver Goals Decrease falls, improve shoulder pain PT-OP-C Subjective Start: 02/24/24 17:38 Freq: Status: Active Protocol: Document 03/17/24 10:28 SW (Rec: 03/17/24 11:19 SW [id number]) OP-PT Subjective Patient Comments Patient Comments Pt reports hurt groin mm, thought may not be able to come in today, though woke up this morning and felt better after taking some medicine. Pt reports shoulder aches after doing shoulder IR/ER, the rest of the HEP is going well. PT-OP-D Balance Start: 02/24/24 17:38 Freq: Status: Active Protocol: Document 02/24/24 15:15 DCW (Rec: 02/24/24 17:54 DCW [id number]) Balance Tests Hawkins Balance Test Hawkins Balance Test Score 49/56 Hawkins Balance Assessment Evaluation Sitting to Standing Ability Independent w/out Hands Unsupported Stance Safely- 2 minutes Sitting Unsupported, Feet on Floor Safely- 2 minutes Standing to Sitting Ability Safely, Minimal Hand Use Transfer Ability Safely, Minimal Hand Use Unsupported Stance- Eyes Closed Safely, 10 seconds Unsupported Stance- Eyes Open Independent, 1 minute Reaching Forward Standing Safely, 5 inches Pick- Up Object From Floor Independent/Safe Look Behind Shoulder - Standing Shifts Weight Well Turning 360 Degrees Supervision/Verbal Cues Unsupported Stance, Alternating Feet on (I)- 8 Steps in 20 secs Stair Unsupported Tandem Stance Holds Tandem- 30 seconds Unilateral Leg Stance Lifts Leg/Holds > 3 secs Total Score Hawkins Total Score (out of 56 points) 49 PT-OP-E Functional Tests Start: 02/24/24 17:38 Freq: Status: Active Protocol: Document 02/24/24 15:15 DCW (Rec: 02/24/24 17:54 DCW [id number]) Functional Tests Dynamic Gait Index (DGI) Score 24 PT-OP-F Manual Assessment Start: 02/24/24 17:38 Freq: Status: Active Protocol: Document 02/24/24 15:15 DCW (Rec: 02/24/24 17:54 DCW [id number]) Manual Assessments Soft Tissue Assessment Soft Tissue Mobility Assessment Tenderness to palpation 3/4: Wincing and withdraw R LH biceps tendon PT-OP-G Mobility & Gait Start: 02/24/24 17:54 Freq: Status: Active Protocol: Document 02/24/24 15:15 DCW (Rec: 02/25/24 09:40 DCW [id number]) OP Gait Assessment Gait Gait Assistance Required: Independent Assistive Devices Assistive Device None Comments Gait Comments Pt exhibits decreased push-off during gait bilaterally, although right appears to be more limited than left. Struggles with ankle strategies, especially with vertical head turns during gait. PT-OP-K Range of Motion Start: 02/24/24 17:38 Freq: Status: Active Protocol: Document 02/24/24 15:15 DCW (Rec: 02/25/24 09:40 DCW [id number]) Shoulder Goniometric Range of Motion Shoulder Right Active Shoulder ROM WFL No Testing Position Sitting Flexion 100 Abduction 150 External Rotation at 0 degrees Abduction 40 PT-OP-L Special Tests Start: 02/24/24 17:38 Freq: Status: Active Protocol: Document 02/24/24 15:15 DCW (Rec: 02/25/24 09:40 DCW [id number]) Special Tests Shoulder Special Tests Yergason's Biceps Test Results Positive R Speed's Biceps Test Results Positive R Lift-Off Rotator Cuff Test Results Negative Story Maximo Impingement Test Results Negative Grind Labrum Test Results Negative Drop Arm Rotator Cuff Test Results Negative Belly Press Test Results Negative Apprehension Test Test Results Negative Anterior Draw Test Results Negative PT-OP-M Strength Start: 02/24/24 17:38 Freq: Status: Active Protocol: Document 02/24/24 15:15 DCW (Rec: 02/25/24 09:40 DCW [id number]) Ankle/Foot Strength Ankle and Foot Manual Muscle Testing Right Dorsiflexion (L4) 4- Good- Plantarflexion (S1) 3+ Fair+ Comments Struggles with single leg heel raise, fatigues after 3-4 repetitions, uses UE for assistance. Left Dorsiflexion (L4) 4- Good- Plantarflexion (S1) 3+ Fair+ Comments Struggles with single leg heel raise, fatigues after 3-4 repetitions, uses UE for assistance. PT-OP-Q Treatments Start: 02/24/24 17:38 Freq: Status: Active Protocol: Document 03/17/24 10:28 SW (Rec: 03/17/24 11:19 SW [id number]) Cardio Equipment Upper Body Ergometer (UBE) Duration (Minutes) 6 RPM 60 Seat Position 10 Height 3 Other f/b 1 min alternating Gym Equipment Shuttle Balance Red Details WBOS, Lateral weight shift Comments pt challenged lateral>A/P, occasional light REFIN[employer] OPER[employer] prn Therapeutic Exercises Sitting Exercises Pulleys Sitting Exercise Name Pulleys - Flexion > AAROM w/ contralateral UE Side bilateral Standing Exercises Toe raises Standing Exercise Name Toe raises Side bilateral Resistance AROM Equipment Used @ rail Reps/Minutes 2 x 10 Comments cues for shifting weight, compensations shoulder rolls Standing Exercise Name reviewed HEP Side bilateral Resistance 5# DB in BUE Reps/Minutes x10 Comments up, back, down- pn free, CS retraction neutral shld IR, ER Standing Exercise Name Trialed Isometric vs Isontonic , good tolerance Side right Resistance L1 light blue latex home Equipment Used towel roll under arm Reps/Minutes 2x12 each Comments cued set up: body pos, elbow at side, control ecc, CS retraction neutral Extension Standing Exercise Name Shoulder Extension- reviewed HEP Side bilateral Resistance Green> L2 aqua latex Equipment Used *time spent on successful band no R bicep irritation Reps/Minutes x15 Comments cued rhomboid fac during con/ eccentric return ext-CS retraction neutral Heel Raises Standing Exercise Name Unilateral heel raises, BLE with small orange ball between ankles Side bilateral Equipment Used light contact rail Reps/Minutes x10 Comments cued tall wt shift into forefoot then lift/lower Self-Care/Home Management Treatment Education Patient Education Home Exercise Program,Pain Management Other Education pt education on physiological effects of heat vs ice, encouraged pt use of modalities prn for discomfort. PT-OP-T Assessment and Plan Start: 02/24/24 17:38 Freq: Status: Active Protocol: Document 03/17/24 10:28 (Rec: 03/17/24 11:19 [id number]) Physical Therapy Assessment Goals Four Impairment Right shoulder flexion limited to 100? due to pain Halfway Goal (LTG) Pt to improve right shoulder flexion to at least 140? without anterior shoulder pain in order to improve ability to perform motions associated with her kayaking hobby. LTG Duration 04/25/24 Three Impairment Bilateral ankle PF MMT tests at 3+/5 Theatrical Dresser Goal (LTG) Pt to increase ankle strength to at least 4/5 in order to improve push-off during gait LTG Duration 04/25/24 Two Impairment Multiple recent falls Halfway Goal (LTG) Pt to exhibit decreased falls risk bu improving DGI score by at least 3 points to LTG Duration 04/25/24 One Impairment Pt does not have an appropriate home exercise program Short Term Goal (STG) Pt to be independent and compliant with an appropriate HEP STG Duration 03/25/24 Assessment Summary Assessment Educated patient on modalities for pt discomfort post exercise and throughout day prn. Pt reports increased discomfort with shoulder IR/ER strengthening, trialed isometric vs isotonic strengtheing, good tolerance no increase in pain, plan to assess pt tolerance next session. Pt challenged on shuttle balance this session, requiring occasional [employer] prn to prevent LOB, close SBA/ pt fingertip required for lateral balance on shuttle balance. Initiated light weight with shoulder rolls for carryover into HEP at home. Physical Therapy Plan Frequency and Duration Frequency of Treatment 2x/Week Plan of Care Start Date 02/24/24 Plan of Care End Date 04/25/24 Therapeutic Interventions Therapeutic Interventions Balance Training,Gait Training ,Home Exercise Program,Joint Mobilizations,Manual Therapy, Neuromuscular Re-education, Patient/Caregiver Education, Self-Care/Home Management,Soft Tissue Mobilization,Taping, Therapeutic Activities, Therapeutic Exercises Modalities Cold Pack/Ice Massage,Electric Stimulation,Hot Packs, Ultrasound Next Visit Focus/Plan Next Note Type Treatment Note Next Visit Plan Assess tolerated reduction resisted humeral IR/ER/ext/ shoulder rolls. POC: Shoulder strengthening/ stabilization, ankle strengthening, gait/balance training
--- NOTE | 2024-03-23 10:26 | PT.OTN ---
Current Diagnoses Pain in right shoulder (03/23/24) Muscle weakness (generalized) (03/23/24) Bicipital tendinitis, right shoulder (03/23/24) Unsteadiness on feet (03/23/24) Repeated falls (03/23/24) History of falling (03/23/24) Physical Therapy Treatment Note PT-OP-A Visit Information Start: 02/24/24 17:38 Freq: Status: Active Protocol: Document 03/23/24 09:45 DCW (Rec: 03/23/24 10:26 DCW [id number]) Out-Patient Physical Therapy Visit Information Visit Information Visit Type Treatment Note Visit Start Time 09:45 Visit Stop Time 10:30 Visit Number 7 Number of BOND MANAGER Visits 0 Evaluation Information Evaluation Date 02/24/24 PT-OP-B Current Condition Start: 02/24/24 17:38 Freq: Status: Active Protocol: Document 02/24/24 15:15 DCW (Rec: 02/24/24 17:49 DCW [id number]) Current Condition History of Current Condition Onset Date Multi-month history Current Complaints Repeated falls, right shoulder pain History of Current Condition Pt is a 73 year old female presenting with complaints of repeated falls and right shoulder pain. Pt has had four falls recently, two caused by tripping or tangling her feet , and two occurred when up walking/carrying things when ill/feverish and her legs just gave out under her. Additionally has been experiencing right anterior shoulder pain for the last ~ four week. Pt is not sure if the shoulder pain was caused by one of the falls. Shoulder bothers her the most performing actions like getting into/out of her kayak, reaching across her body for a seat belt, or pulling up her pants. Also disturbs her sleep when she sleeps on her right side. Pt notes clicking/ popping in anterior shoulder. As far as her balance goes, pt participates multiple times a week in a ilana class, and notices any time that she has to stand on one foot, she is very unstable/falls. Treatment Goals Patient/Caregiver Goals Decrease falls, improve shoulder pain PT-OP-C Subjective Start: 02/24/24 17:38 Freq: Status: Active Protocol: Document 03/23/24 09:45 DCW (Rec: 03/23/24 10:26 DCW [id number]) OP-PT Subjective Patient Comments Patient Comments The shoulder is really no different. THe balance is slowly getting better. PT-OP-D Balance Start: 02/24/24 17:38 Freq: Status: Active Protocol: Document 02/24/24 15:15 DCW (Rec: 02/24/24 17:54 DCW [id number]) Balance Tests Hawkins Balance Test Hawkins Balance Test Score 49/56 Hawkins Balance Assessment Evaluation Sitting to Standing Ability Independent w/out Hands Unsupported Stance Safely- 2 minutes Sitting Unsupported, Feet on Floor Safely- 2 minutes Standing to Sitting Ability Safely, Minimal Hand Use Transfer Ability Safely, Minimal Hand Use Unsupported Stance- Eyes Closed Safely, 10 seconds Unsupported Stance- Eyes Open Independent, 1 minute Reaching Forward Standing Safely, 5 inches Pick- Up Object From Floor Independent/Safe Look Behind Shoulder - Standing Shifts Weight Well Turning 360 Degrees Supervision/Verbal Cues Unsupported Stance, Alternating Feet on (I)- 8 Steps in 20 secs Stair Unsupported Tandem Stance Holds Tandem- 30 seconds Unilateral Leg Stance Lifts Leg/Holds > 3 secs Total Score Hawkins Total Score (out of 56 points) 49 PT-OP-E Functional Tests Start: 02/24/24 17:38 Freq: Status: Active Protocol: Document 02/24/24 15:15 DCW (Rec: 02/24/24 17:54 DCW [id number]) Functional Tests Dynamic Gait Index (DGI) Score PT-OP-F Manual Assessment Start: 02/24/24 17:38 Freq: Status: Active Protocol: Document 02/24/24 15:15 DCW (Rec: 02/24/24 17:54 DCW [id number]) Manual Assessments Soft Tissue Assessment Soft Tissue Mobility Assessment Tenderness to palpation 3/4: Wincing and withdraw R LH biceps tendon PT-OP-G Mobility & Gait Start: 02/24/24 17:54 Freq: Status: Active Protocol: Document 02/24/24 15:15 DCW (Rec: 02/25/24 09:40 DCW [id number]) OP Gait Assessment Gait Gait Assistance Required: Independent Assistive Devices Assistive Device None Comments Gait Comments Pt exhibits decreased push-off during gait bilaterally, although right appears to be more limited than left. Struggles with ankle strategies, especially with vertical head turns during gait. PT-OP-K Range of Motion Start: 02/24/24 17:38 Freq: Status: Active Protocol: Document 02/24/24 15:15 DCW (Rec: 02/25/24 09:40 DCW [id number]) Shoulder Goniometric Range of Motion Shoulder Right Active Shoulder ROM WFL No Testing Position Sitting Flexion 100 Abduction 150 External Rotation at 0 degrees Abduction 40 PT-OP-L Special Tests Start: 02/24/24 17:38 Freq: Status: Active Protocol: Document 02/24/24 15:15 DCW (Rec: 02/25/24 09:40 DCW [id number]) Special Tests Shoulder Special Tests Yergason's Biceps Test Results Positive R Speed's Biceps Test Results Positive R Lift-Off Rotator Cuff Test Results Negative Story Maximo Impingement Test Results Negative Grind Labrum Test Results Negative Drop Arm Rotator Cuff Test Results Negative Belly Press Test Results Negative Apprehension Test Test Results Negative Anterior Draw Test Results Negative PT-OP-M Strength Start: 02/24/24 17:38 Freq: Status: Active Protocol: Document 02/24/24 15:15 DCW (Rec: 02/25/24 09:40 DCW [id number]) Ankle/Foot Strength Ankle and Foot Manual Muscle Testing Right Dorsiflexion (L4) 4- Good- Plantarflexion (S1) 3+ Fair+ Comments Struggles with single leg heel raise, fatigues after 3-4 repetitions, uses UE for assistance. Left Dorsiflexion (L4) 4- Good- Plantarflexion (S1) 3+ Fair+ Comments Struggles with single leg heel raise, fatigues after 3-4 repetitions, uses UE for assistance. PT-OP-Q Treatments Start: 02/24/24 17:38 Freq: Status: Active Protocol: Document 03/23/24 09:45 DCW (Rec: 03/23/24 10:26 DCW [id number]) Cardio Equipment Upper Body Ergometer (UBE) Duration (Minutes) 6 RPM 60 Seat Position 12 Height 3 Other f/b 1 min alternating Gym Equipment Shuttle Recovery Bilateral Heel Raises Resistance 75# Shuttle Balance Red Details WBOS, Lateral weight shift Comments pt challenged lateral>A/P, occasional light SHINGLE GRADER prn Therapeutic Exercises Supine Exercises Horizontal Adduction Supine Exercise Name Supine horizontal adduction Side bilateral Resistance 2# Serratus Punch Supine Exercise Name Serratus Punch Side bilateral Resistance 2# Standing Exercises PNF Standing Exercise Name D1/D2 UE PNF Side right Resistance 2# Comments decreased IR due to pain Manual Therapy Treatment Taping Shoulder Body Location R shoulder Type of Tape Kinesio Tape Comments 2 deltoid T-strips 1 bicipital groove Y-strip PT-OP-T Assessment and Plan Start: 02/24/24 17:38 Freq: Status: Active Protocol: Document 03/23/24 09:45 DCW (Rec: 03/23/24 10:26 DCW [id number]) Physical Therapy Assessment Assessment Summary Assessment Trial of k-taping, overall good response. Pt showing some improvement with ankle strength. Focused on slow controlled eccentric lowering with heel raises on leg press Physical Therapy Plan Frequency and Duration Frequency of Treatment 2x/Week Plan of Care Start Date 02/24/24 Plan of Care End Date 04/25/24 Therapeutic Interventions Therapeutic Interventions Balance Training,Gait Training ,Home Exercise Program,Joint Mobilizations,Manual Therapy, Neuromuscular Re-education, Patient/Caregiver Education, Self-Care/Home Management,Soft Tissue Mobilization,Taping, Therapeutic Activities, Therapeutic Exercises Modalities Cold Pack/Ice Massage,Electric Stimulation,Hot Packs, Ultrasound Next Visit Focus/Plan Next Note Type Treatment Note Next Visit Plan Assess tolerated reduction resisted humeral IR/ER/ext/ shoulder rolls. POC: Shoulder strengthening/ stabilization, ankle strengthening, gait/balance training
--- NOTE | 2024-03-26 10:30 | PT.OTN ---
Current Diagnoses Pain in right shoulder (03/26/24) Muscle weakness (generalized) (03/26/24) Bicipital tendinitis, right shoulder (03/26/24) Unsteadiness on feet (03/26/24) Repeated falls (03/26/24) History of falling (03/26/24) Physical Therapy Treatment Note PT-OP-A Visit Information Start: 02/24/24 17:38 Freq: Status: Active Protocol: Document 03/26/24 09:45 DCW (Rec: 03/26/24 10:30 DCW [id number]) Out-Patient Physical Therapy Visit Information Visit Information Visit Type Treatment Note Visit Start Time 09:45 Visit Stop Time 10:30 Visit Number 8 Number of ANIMAL CARE SERVICE WORKER Visits 0 Evaluation Information Evaluation Date 02/24/24 PT-OP-B Current Condition Start: 02/24/24 17:38 Freq: Status: Active Protocol: Document 02/24/24 15:15 DCW (Rec: 02/24/24 17:49 DCW [id number]) Current Condition History of Current Condition Onset Date Multi-month history Current Complaints Repeated falls, right shoulder pain History of Current Condition Pt is a 73 year old female presenting with complaints of repeated falls and right shoulder pain. Pt has had four falls recently, two caused by tripping or tangling her feet , and two occurred when up walking/carrying things when ill/feverish and her legs just gave out under her. Additionally has been experiencing right anterior shoulder pain for the last ~ four week. Pt is not sure if the shoulder pain was caused by one of the falls. Shoulder bothers her the most performing actions like getting into/out of her kayak, reaching across her body for a seat belt, or pulling up her pants. Also disturbs her sleep when she sleeps on her right side. Pt notes clicking/ popping in anterior shoulder. As far as her balance goes, pt participates multiple times a week in a ilana class, and notices any time that she has to stand on one foot, she is very unstable/falls. Treatment Goals Patient/Caregiver Goals Decrease falls, improve shoulder pain PT-OP-C Subjective Start: 02/24/24 17:38 Freq: Status: Active Protocol: Document 03/26/24 09:45 DCW (Rec: 03/26/24 10:30 DCW [id number]) OP-PT Subjective Patient Comments Patient Comments Pt notes she is noticing improvement with her balance, feels her ankle is getting stronger. Still limited with her shoulder pain. PT-OP-D Balance Start: 02/24/24 17:38 Freq: Status: Active Protocol: Document 02/24/24 15:15 DCW (Rec: 02/24/24 17:54 DCW [id number]) Balance Tests Hawkins Balance Test Hawkins Balance Test Score 49/56 Hawkins Balance Assessment Evaluation Sitting to Standing Ability Independent w/out Hands Unsupported Stance Safely- 2 minutes Sitting Unsupported, Feet on Floor Safely- 2 minutes Standing to Sitting Ability Safely, Minimal Hand Use Transfer Ability Safely, Minimal Hand Use Unsupported Stance- Eyes Closed Safely, 10 seconds Unsupported Stance- Eyes Open Independent, 1 minute Reaching Forward Standing Safely, 5 inches Pick- Up Object From Floor Independent/Safe Look Behind Shoulder - Standing Shifts Weight Well Turning 360 Degrees Supervision/Verbal Cues Unsupported Stance, Alternating Feet on (I)- 8 Steps in 20 secs Stair Unsupported Tandem Stance Holds Tandem- 30 seconds Unilateral Leg Stance Lifts Leg/Holds > 3 secs Total Score Hawkins Total Score (out of 56 points) 49 PT-OP-E Functional Tests Start: 02/24/24 17:38 Freq: Status: Active Protocol: Document 02/24/24 15:15 DCW (Rec: 02/24/24 17:54 DCW [id number]) Functional Tests Dynamic Gait Index (DGI) Score 24 PT-OP-F Manual Assessment Start: 02/24/24 17:38 Freq: Status: Active Protocol: Document 02/24/24 15:15 DCW (Rec: 02/24/24 17:54 DCW [id number]) Manual Assessments Soft Tissue Assessment Soft Tissue Mobility Assessment Tenderness to palpation 3/4: Wincing and withdraw R LH biceps tendon PT-OP-G Mobility & Gait Start: 02/24/24 17:54 Freq: Status: Active Protocol: Document 02/24/24 15:15 DCW (Rec: 02/25/24 09:40 DCW [id number]) OP Gait Assessment Gait Gait Assistance Required: Independent Assistive Devices Assistive Device None Comments Gait Comments Pt exhibits decreased push-off during gait bilaterally, although right appears to be more limited than left. Struggles with ankle strategies, especially with vertical head turns during gait. PT-OP-K Range of Motion Start: 02/24/24 17:38 Freq: Status: Active Protocol: Document 02/24/24 15:15 DCW (Rec: 02/25/24 09:40 DCW [id number]) Shoulder Goniometric Range of Motion Shoulder Right Active Shoulder ROM WFL No Testing Position Sitting Flexion 100 Abduction 150 External Rotation at 0 degrees Abduction 40 PT-OP-L Special Tests Start: 02/24/24 17:38 Freq: Status: Active Protocol: Document 02/24/24 15:15 DCW (Rec: 02/25/24 09:40 DCW [id number]) Special Tests Shoulder Special Tests Yergason's Biceps Test Results Positive R Speed's Biceps Test Results Positive R Lift-Off Rotator Cuff Test Results Negative Story Maximo Impingement Test Results Negative Grind Labrum Test Results Negative Drop Arm Rotator Cuff Test Results Negative Belly Press Test Results Negative Apprehension Test Test Results Negative Anterior Draw Test Results Negative PT-OP-M Strength Start: 02/24/24 17:38 Freq: Status: Active Protocol: Document 02/24/24 15:15 DCW (Rec: 02/25/24 09:40 DCW [id number]) Ankle/Foot Strength Ankle and Foot Manual Muscle Testing Right Dorsiflexion (L4) 4- Good- Plantarflexion (S1) 3+ Fair+ Comments Struggles with single leg heel raise, fatigues after 3-4 repetitions, uses UE for assistance. Left Dorsiflexion (L4) 4- Good- Plantarflexion (S1) 3+ Fair+ Comments Struggles with single leg heel raise, fatigues after 3-4 repetitions, uses UE for assistance. PT-OP-Q Treatments Start: 02/24/24 17:38 Freq: Status: Active Protocol: Document 03/26/24 09:45 DCW (Rec: 03/26/24 10:30 DCW [id number]) Cardio Equipment Upper Body Ergometer (UBE) Duration (Minutes) 6 RPM 60 Seat Position 12 Height 3 Other f/b 1 min alternating Gym Equipment Shuttle Recovery Bilateral Heel Raises Resistance 75# Shuttle Balance Red Details WBOS, Staggered, Lateral weight shift Therapeutic Exercises Standing Exercises Rows Standing Exercise Name Rows and Arm Bike motion Side bilateral Resistance Green Heel Raises Standing Exercise Name Unilateral heel raises Side bilateral Equipment Used light contact rail Reps/Minutes x10 Neuro Re-Education Treatment Balance Activities SLS Details SLS Surface Black foam PT-OP-T Assessment and Plan Start: 02/24/24 17:38 Freq: Status: Active Protocol: Document 03/26/24 09:45 DCW (Rec: 03/26/24 10:30 DCW [id number]) Physical Therapy Assessment Impairments Impairments Activity Tolerance,Balance, Functional Activities, Functional Mobility,Gait,Pain, ROM,Soft Tissue Mobility, Strength,Tone Goals Four Impairment Right shoulder flexion limited to 100? due to pain Factorer Goal (LTG) Pt to improve right shoulder flexion to at least 140? without anterior shoulder pain in order to improve ability to perform motions associated with her kayaking hobby. LTG Duration 04/25/24 Three Impairment Bilateral ankle PF MMT tests at 3+/5 Factorer Goal (LTG) Pt to increase ankle strength to at least 4/5 in order to improve push-off during gait LTG Duration 04/25/24 Two Impairment Multiple recent falls Factorer Goal (LTG) Pt to exhibit decreased falls risk bu improving DGI score by at least 3 points to LTG Duration 04/25/24 One Impairment Pt does not have an appropriate home exercise program Short Term Goal (STG) Pt to be independent and compliant with an appropriate HEP STG Duration 03/25/24 Assessment Summary Assessment Pt progressing well with balance and ankle strengthening, doing better with HEP and challenging herself. Will likely be approaching discharge, may benefit from a few move visits to ensure she is progressing well with HEP and has no lingering questions, transition to every other week Physical Therapy Plan Frequency and Duration Frequency of Treatment Every Other Week Plan of Care Start Date 02/24/24 Plan of Care End Date 04/25/24 Therapeutic Interventions Therapeutic Interventions Balance Training,Gait Training ,Home Exercise Program,Joint Mobilizations,Manual Therapy, Neuromuscular Re-education, Patient/Caregiver Education, Self-Care/Home Management,Soft Tissue Mobilization,Taping, Therapeutic Activities, Therapeutic Exercises Modalities Cold Pack/Ice Massage,Electric Stimulation,Hot Packs, Ultrasound Next Visit Focus/Plan Next Note Type Treatment Note Next Visit Plan Assess tolerated reduction resisted humeral IR/ER/ext/ shoulder rolls. POC: Shoulder strengthening/ stabilization, ankle strengthening, gait/balance training
--- NOTE | 2024-04-24 11:06 | PT.OTN ---
Current Diagnoses Pain in right shoulder (04/24/24) Muscle weakness (generalized) (04/24/24) Bicipital tendinitis, right shoulder (04/24/24) Unsteadiness on feet (04/24/24) Repeated falls (04/24/24) History of falling (04/24/24) Physical Therapy Treatment Note PT-OP-A Visit Information Start: 02/24/24 17:38 Freq: Status: Active Protocol: Document 04/24/24 08:13 AB (Rec: 04/24/24 11:00 AB [id number]) Out-Patient Physical Therapy Visit Information Visit Information Visit Type Treatment Note Visit Start Time 09:48 Visit Stop Time 10:37 Visit Number 9 Number of TAX PREPARER Visits 1 Evaluation Information Evaluation Date 02/24/24 PT-OP-B Current Condition Start: 02/24/24 17:38 Freq: Status: Active Protocol: Document 02/24/24 15:15 DCW (Rec: 02/24/24 17:49 DCW [id number]) Current Condition History of Current Condition Onset Date Multi-month history Current Complaints Repeated falls, right shoulder pain History of Current Condition Pt is a 73 year old female presenting with complaints of repeated falls and right shoulder pain. Pt has had four falls recently, two caused by tripping or tangling her feet , and two occurred when up walking/carrying things when ill/feverish and her legs just gave out under her. Additionally has been experiencing right anterior shoulder pain for the last ~ four week. Pt is not sure if the shoulder pain was caused by one of the falls. Shoulder bothers her the most performing actions like getting into/out of her kayak, reaching across her body for a seat belt, or pulling up her pants. Also disturbs her sleep when she sleeps on her right side. Pt notes clicking/ popping in anterior shoulder. As far as her balance goes, pt participates multiple times a week in a ilana class, and notices any time that she has to stand on one foot, she is very unstable/falls. Treatment Goals Patient/Caregiver Goals Decrease falls, improve shoulder pain PT-OP-C Subjective Start: 02/24/24 17:38 Freq: Status: Active Protocol: Document 04/24/24 08:13 AB (Rec: 04/24/24 11:00 AB [id number]) OP-PT Subjective Patient Comments Patient Comments Patient reports balance is a little better, shoulder is not as painful, but still there, pushing through UE's to get out of a Kayak is difficult. 04/24/2024: AROM right shoulder flexion 127 deg with reports of pain limiting movement start of session to 134 deg end of session. PT-OP-D Balance Start: 02/24/24 17:38 Freq: Status: Active Protocol: Document 02/24/24 15:15 DCW (Rec: 02/24/24 17:54 DCW [id number]) Balance Tests Hawkins Balance Test Hawkins Balance Test Score 49/56 Hawkins Balance Assessment Evaluation Sitting to Standing Ability Independent w/out Hands Unsupported Stance Safely- 2 minutes Sitting Unsupported, Feet on Floor Safely- 2 minutes Standing to Sitting Ability Safely, Minimal Hand Use Transfer Ability Safely, Minimal Hand Use Unsupported Stance- Eyes Closed Safely, 10 seconds Unsupported Stance- Eyes Open Independent, 1 minute Reaching Forward Standing Safely, 5 inches Pick- Up Object From Floor Independent/Safe Look Behind Shoulder - Standing Shifts Weight Well Turning 360 Degrees Supervision/Verbal Cues Unsupported Stance, Alternating Feet on (I)- 8 Steps in 20 secs Stair Unsupported Tandem Stance Holds Tandem- 30 seconds Unilateral Leg Stance Lifts Leg/Holds > 3 secs Total Score Hawkins Total Score (out of 56 points) 49 PT-OP-E Functional Tests Start: 02/24/24 17:38 Freq: Status: Active Protocol: Document 04/24/24 08:13 AB (Rec: 04/24/24 11:05 AB [id number]) Functional Tests Dynamic Gait Index (DGI) DGI Impairment Rating 1 to <20% Impaired (Score 20- 23) PT-OP-F Manual Assessment Start: 02/24/24 17:38 Freq: Status: Active Protocol: Document 02/24/24 15:15 DCW (Rec: 02/24/24 17:54 DCW [id number]) Manual Assessments Soft Tissue Assessment Soft Tissue Mobility Assessment Tenderness to palpation 3/4: Wincing and withdraw R LH biceps tendon PT-OP-G Mobility & Gait Start: 02/24/24 17:54 Freq: Status: Active Protocol: Document 02/24/24 15:15 DCW (Rec: 02/25/24 09:40 DCW [id number]) OP Gait Assessment Gait Gait Assistance Required: Independent Assistive Devices Assistive Device None Comments Gait Comments Pt exhibits decreased push-off during gait bilaterally, although right appears to be more limited than left. Struggles with ankle strategies, especially with vertical head turns during gait. PT-OP-K Range of Motion Start: 02/24/24 17:38 Freq: Status: Active Protocol: Document 04/24/24 08:13 AB (Rec: 04/24/24 11:05 AB [id number]) Shoulder Goniometric Range of Motion Shoulder Right Active Testing Position Standing Flexion 134 Comments limited by pain, per patient end of session measurement post manual therapy and exercise PT-OP-L Special Tests Start: 02/24/24 17:38 Freq: Status: Active Protocol: Document 02/24/24 15:15 DCW (Rec: 02/25/24 09:40 DCW [id number]) Special Tests Shoulder Special Tests Yergason's Biceps Test Results Positive R Speed's Biceps Test Results Positive R Lift-Off Rotator Cuff Test Results Negative Story Maximo Impingement Test Results Negative Grind Labrum Test Results Negative Drop Arm Rotator Cuff Test Results Negative Belly Press Test Results Negative Apprehension Test Test Results Negative Anterior Draw Test Results Negative PT-OP-M Strength Start: 02/24/24 17:38 Freq: Status: Active Protocol: Document 04/24/24 08:13 AB (Rec: 04/24/24 11:05 AB [id number]) Ankle/Foot Strength Ankle and Foot Manual Muscle Testing Right Dorsiflexion (L4) 3- Fair- Comments unable to perform a full ROM single leg heel raise with fingertip support Left Comments 03/19 PT-OP-Q Treatments Start: 02/24/24 17:38 Freq: Status: Active Protocol: Document 04/24/24 08:13 AB (Rec: 04/24/24 11:00 AB [id number]) Therapeutic Exercises Supine Exercises shoulder flexion Side bilateral Reps/Minutes X10 for 10 seconds Comments verbal cues, Patient ed rationale of 10 sec hold for gravity assist stretch Sitting Exercises short sit to upright Side bilateral Reps/Minutes X6 Comments verbal cues, monitored for pain shoulder ER Sitting Exercise Name 1. PROM body over UE 2. AROM Side right Reps/Minutes X10 each Comments verbal and visual cues Standing Exercises Heel Raises Standing Exercise Name bilateral this session Side bilateral Equipment Used with light UE support Reps/Minutes 15 Comments Pt ed rationale of lowering heels slowly for carryover to cont fwd momentum Manual Therapy Treatment Soft Tissue Mobilization right shoulder Body Location pec, post cuff, UT, levator scap Mobilization Type Cross-Friction,Rolling, Sustained Pressure Intensity/Depth Moderate to superficial Body Position Hooklying and sidelying Comments prior to exercise, monitored for pain, pec and post cuff with reports of tenderness and pain with moderate pressure. Joint Mobilizations right shoulder Joint GH and scapula Direction AP and inf for GH, into adduction and depression for scap Grade IV Body Position Sidelying Reps/Duration 3X10 GH each direction, X 10 for scapula each direction Comments Monitored for pain jaiden Neuro Re-Education Treatment Other Activities DGI test Details distant to occasional close supervision during test PT-OP-T Assessment and Plan Start: 02/24/24 17:38 Freq: Status: Active Protocol: Document 04/24/24 08:13 AB (Rec: 04/24/24 11:00 AB [id number]) Physical Therapy Assessment Goals Four Impairment Right shoulder flexion limited to 100? due to pain Long-Term Goal (LTG) Pt to improve right shoulder flexion to at least 140? without anterior shoulder pain in order to improve ability to perform motions associated with her kayaking hobby. 04/24/2024 AROM right shoulder 127 deg with reports of pain end ROM, hand behind back to L2 LTG Duration 04/25/24 Three Impairment Bilateral ankle PF MMT tests at 3+/5 Long-Term Goal (LTG) Pt to increase ankle strength to at least 4/5 in order to improve push-off during gait 04/24/2024 single leg heel raise with finger tip support right unable to perform a full heel raise, left 03/19 LTG Duration 04/25/24 Two Impairment Multiple recent falls [employer] Machine Tender Goal (LTG) Pt to exhibit decreased falls risk bu improving DGI score by at least 3 points to 2204/24/2024 DGI score LTG Duration 04/25/24 One Impairment Pt does not have an appropriate home exercise program Short Term Goal (STG) Pt to be independent and compliant with an appropriate HEP STG Duration 03/25/24 Assessment Summary Assessment AROM right shoulder flexion to 134 deg with verbalization of limited by pain. Patient reports shoulder is feeling great end of session. Physical Therapy Plan Frequency and Duration Frequency of Treatment Every Other Week Plan of Care Start Date 02/24/24 Plan of Care End Date 04/25/24 Next Visit Focus/Plan Next Note Type Treatment Note Next Visit Plan Patient has made gains in shoulder ROM and DGI score, but has not yet met goals for physical therapy. Shoulder ROM continues to be limited and pain with pushing through right UE to exit Kayak persists.
--- NOTE | 2024-04-29 11:12 | PT.OTN ---
Current Diagnoses Pain in right shoulder (04/29/24) Muscle weakness (generalized) (04/29/24) Bicipital tendinitis, right shoulder (04/29/24) Unsteadiness on feet (04/29/24) Repeated falls (04/29/24) History of falling (04/29/24) Physical Therapy Treatment Note PT-OP-A Visit Information Start: 02/24/24 17:38 Freq: Status: Active Protocol: Document 04/29/24 10:35 DCW (Rec: 04/29/24 11:12 DCW [id number]) Out-Patient Physical Therapy Visit Information Visit Information Visit Type Discharge Summary Visit Start Time 10:35 Visit Stop Time 11:05 Visit Number 10 Number of LOCAL DRIVER Visits 0 Evaluation Information Evaluation Date 02/24/24 PT-OP-B Current Condition Start: 02/24/24 17:38 Freq: Status: Active Protocol: Document 02/24/24 15:15 DCW (Rec: 02/24/24 17:49 DCW [id number]) Current Condition History of Current Condition Onset Date Multi-month history Current Complaints Repeated falls, right shoulder pain History of Current Condition Pt is a 73 year old female presenting with complaints of repeated falls and right shoulder pain. Pt has had four falls recently, two caused by tripping or tangling her feet , and two occurred when up walking/carrying things when ill/feverish and her legs just gave out under her. Additionally has been experiencing right anterior shoulder pain for the last ~ four week. Pt is not sure if the shoulder pain was caused by one of the falls. Shoulder bothers her the most performing actions like getting into/out of her kayak, reaching across her body for a seat belt, or pulling up her pants. Also disturbs her sleep when she sleeps on her right side. Pt notes clicking/ popping in anterior shoulder. As far as her balance goes, pt participates multiple times a week in a ilana class, and notices any time that she has to stand on one foot, she is very unstable/falls. Treatment Goals Patient/Caregiver Goals Decrease falls, improve shoulder pain PT-OP-C Subjective Start: 02/24/24 17:38 Freq: Status: Active Protocol: Document 04/29/24 10:35 DCW (Rec: 04/29/24 11:12 DCW [id number]) OP-PT Subjective Patient Comments Patient Comments Pt feeling really good. Still notes slight limitations , but feels confident with continuing HEP independently. PT-OP-D Balance Start: 02/24/24 17:38 Freq: Status: Active Protocol: Document 02/24/24 15:15 DCW (Rec: 02/24/24 17:54 DCW [id number]) Balance Tests Hawkins Balance Test Hawkins Balance Test Score 49/56 Hawkins Balance Assessment Evaluation Sitting to Standing Ability Independent w/out Hands Unsupported Stance Safely- 2 minutes Sitting Unsupported, Feet on Floor Safely- 2 minutes Standing to Sitting Ability Safely, Minimal Hand Use Transfer Ability Safely, Minimal Hand Use Unsupported Stance- Eyes Closed Safely, 10 seconds Unsupported Stance- Eyes Open Independent, 1 minute Reaching Forward Standing Safely, 5 inches Pick- Up Object From Floor Independent/Safe Look Behind Shoulder - Standing Shifts Weight Well Turning 360 Degrees Supervision/Verbal Cues Unsupported Stance, Alternating Feet on (I)- 8 Steps in 20 secs Stair Unsupported Tandem Stance Holds Tandem- 30 seconds Unilateral Leg Stance Lifts Leg/Holds > 3 secs Total Score Hawkins Total Score (out of 56 points) 49 PT-OP-E Functional Tests Start: 02/24/24 17:38 Freq: Status: Active Protocol: Document 04/24/24 08:13 AB (Rec: 04/24/24 11:05 AB [id number]) Functional Tests Dynamic Gait Index (DGI) DGI Impairment Rating 1 to <20% Impaired (Score 20- 23) PT-OP-F Manual Assessment Start: 02/24/24 17:38 Freq: Status: Active Protocol: Document 04/29/24 10:35 DCW (Rec: 04/29/24 10:44 DCW [id number]) Manual Assessments Soft Tissue Assessment Soft Tissue Mobility Assessment Tenderness to palpation 2/4: Pain with Wincing R LH biceps tendon PT-OP-G Mobility & Gait Start: 02/24/24 17:54 Freq: Status: Active Protocol: Document 04/29/24 10:35 DCW (Rec: 04/29/24 10:44 DCW [id number]) OP Gait Assessment Gait Gait Assistance Required: Independent Assistive Devices Assistive Device None Comments Gait Comments Push-off WNL bilaterally PT-OP-K Range of Motion Start: 02/24/24 17:38 Freq: Status: Active Protocol: Document 04/29/24 10:35 DCW (Rec: 04/29/24 10:44 DCW [id number]) Shoulder Goniometric Range of Motion Shoulder Right Active Shoulder ROM WFL No Testing Position Sitting Flexion 141 Abduction 170 External Rotation at 0 degrees Abduction 70 Internal Rotation Behind Back (text) T6 PT-OP-L Special Tests Start: 02/24/24 17:38 Freq: Status: Active Protocol: Document 02/24/24 15:15 DCW (Rec: 02/25/24 09:40 DCW [id number]) Special Tests Shoulder Special Tests Yergason's Biceps Test Results Positive R Speed's Biceps Test Results Positive R Lift-Off Rotator Cuff Test Results Negative Story Maximo Impingement Test Results Negative Grind Labrum Test Results Negative Drop Arm Rotator Cuff Test Results Negative Belly Press Test Results Negative Apprehension Test Test Results Negative Anterior Draw Test Results Negative PT-OP-M Strength Start: 02/24/24 17:38 Freq: Status: Active Protocol: Document 04/29/24 10:35 DCW (Rec: 04/29/24 10:44 DCW [id number]) Ankle/Foot Strength Ankle and Foot Manual Muscle Testing Right Dorsiflexion (L4) 4 Good Plantarflexion (S1) 4 Good PT-OP-Q Treatments Start: 02/24/24 17:38 Freq: Status: Active Protocol: Document 04/29/24 10:35 DCW (Rec: 04/29/24 11:12 DCW [id number]) Manual Therapy Treatment Soft Tissue Mobilization right shoulder Body Location pec, post cuff, UT, levator scap Mobilization Type Cross-Friction,Rolling, Sustained Pressure Intensity/Depth Moderate to superficial Body Position Hooklying Joint Mobilizations right shoulder Joint GH and scapula Direction AP and inf for GH, into adduction and depression for scap Grade IV Body Position Hooklying Reps/Duration 3X10 GH each direction, X 10 for scapula each direction Comments Monitored for pain jaiden PT-OP-T Assessment and Plan Start: 02/24/24 17:38 Freq: Status: Active Protocol: Document 04/29/24 10:35 DCW (Rec: 04/29/24 11:12 DCW [id number]) Physical Therapy Assessment Impairments Impairments Activity Tolerance,Balance, Functional Activities, Functional Mobility,Gait,Pain, ROM,Soft Tissue Mobility, Strength,Tone Goals Four Impairment Right shoulder flexion limited to 100? due to pain Custodial Goal (LTG) Pt to improve right shoulder flexion to at least 140? without anterior shoulder pain in order to improve ability to perform motions associated with her kayaking hobby. LTG Duration Met Three Impairment Bilateral ankle PF MMT tests at 3+/5 Custodial Goal (LTG) Pt to increase ankle strength to at least 4/5 in order to improve push-off during gait LTG Duration Met Two Impairment Multiple recent falls Custodial Goal (LTG) Pt to exhibit decreased falls risk bu improving DGI score by at least 3 points to LTG Duration 04/25/24 Nearly Met () One Impairment Pt does not have an appropriate home exercise program Short Term Goal (STG) Pt to be independent and compliant with an appropriate HEP STG Duration Met Assessment Summary Assessment Pt feeling very good overall, happy with current level of function. Pt has met nearly all goals (only one point off DGI goal), feels comfortable with independent HEP. Patient and therapist agreeable with discharge at this time. Physical Therapy Plan Frequency and Duration Frequency of Treatment 1x/Week Plan of Care Start Date 04/29/24 Plan of Care End Date 04/30/24 Therapeutic Interventions Therapeutic Interventions Balance Training,Gait Training ,Home Exercise Program,Joint Mobilizations,Manual Therapy, Neuromuscular Re-education, Patient/Caregiver Education, Self-Care/Home Management,Soft Tissue Mobilization,Taping, Therapeutic Activities, Therapeutic Exercises Modalities Cold Pack/Ice Massage,Electric Stimulation,Hot Packs, Ultrasound Discharge Physical Therapy Discharge Reasons Goals Met Next Visit Focus/Plan Next Note Type Discharge Summary
--- NOTE | 2024-04-29 11:13 | PT.OPPOC ---
Physical, Occupational & Speech Therapy At [facility] Current Diagnoses Pain in right shoulder (04/29/24) Muscle weakness (generalized) (04/29/24) Bicipital tendinitis, right shoulder (04/29/24) Unsteadiness on feet (04/29/24) Repeated falls (04/29/24) History of falling (04/29/24) Visit Care Team Role Provider Type Osmany Crandall MD Primary Care Provider Physician Specialty: Family Practice Address: [address] [place], [place] [id number] Email: [email or web address] John Ledesma MD Family Provider Non-Staff Specialty: [facility] Address: [address] [place] [id number] Email: [email or web address] Angulo PA-C Attending Provider Advanced Weblogic Developer Referring Provider Specialty: Medical Wound Care Address: [address] [place] [address], [id number] Email: [email or web address] Plan Of Care PT-OP-T Assessment and Plan Start: 02/24/24 17:38 Freq: Status: Active Protocol: Document 04/29/24 10:35 DCW (Rec: 04/29/24 11:12 DCW [id number]) Physical Therapy Assessment Impairments Impairments Activity Tolerance,Balance, Functional Activities, Functional Mobility,Gait,Pain, ROM,Soft Tissue Mobility, Strength,Tone Goals Four Impairment Right shoulder flexion limited to 100? due to pain Supervisor Fitting Goal (LTG) Pt to improve right shoulder flexion to at least 140? without anterior shoulder pain in order to improve ability to perform motions associated with her kayaking hobby. LTG Duration Met Three Impairment Bilateral ankle PF MMT tests at 3+/5 Supervisor Fitting Goal (LTG) Pt to increase ankle strength to at least 4/5 in order to improve push-off during gait LTG Duration Met Two Impairment Multiple recent falls Assisted Goal (LTG) Pt to exhibit decreased falls risk bu improving DGI score by at least 3 points to LTG Duration 04/25/24 Nearly Met () One Impairment Pt does not have an appropriate home exercise program Short Term Goal (STG) Pt to be independent and compliant with an appropriate HEP STG Duration Met Assessment Summary Assessment Pt feeling very good overall, happy with current level of function. Pt has met nearly all goals (only one point off DGI goal), feels comfortable with independent HEP. Patient and therapist agreeable with discharge at this time. Physical Therapy Plan Frequency and Duration Frequency of Treatment 1x/Week Plan of Care Start Date 04/29/24 Plan of Care End Date 04/30/24 Therapeutic Interventions Therapeutic Interventions Balance Training,Gait Training ,Home Exercise Program,Joint Mobilizations,Manual Therapy, Neuromuscular Re-education, Patient/Caregiver Education, Self-Care/Home Management,Soft Tissue Mobilization,Taping, Therapeutic Activities, Therapeutic Exercises Modalities Cold Pack/Ice Massage,Electric Stimulation,Hot Packs, Ultrasound Discharge Physical Therapy Discharge Reasons Goals Met Next Visit Focus/Plan Next Note Type Discharge Summary Plan of Care Dates Plan of Care Start Date 04/29/24 Plan of Care End Date 04/30/24 Electronically Signed by: Gato Webb, PT 04/29/24 1233 If you are in agreement with this Plan of Care, please return a signed and dated copy. I have reviewed this Plan of Care and certify that the skilled therapy services above are required to meet the patient?s needs. Physician Signature Date Printed Name and Credentials Clinical Instructor Signature Printed Name and Credentials
== END 2024-05-07 10:23 | disposition home or self-care (01) ==
LOC: PHYS 10:30
PROVIDERS: Family Provider Family Medicine; PCP Family Medicine; Referring Provider Physician Assistant; Visit Provider Physician Assistant
DX: M25.511 Pain in right shoulder (principal); Z91.81 History of falling; R26.81 Unsteadiness on feet; R29.6 Repeated falls; M62.81 Muscle weakness (generalized); M75.21 Bicipital tendinitis, right shoulder
CPT/HCPCS: 97110; 97112; 97140; 97162